=== PATIENT | male | born 1940 | race Caucasian/White ===

== ENCOUNTER 2017-07-21 02:05 | Inpatient (IN) | payer MEDICARE ==
[~2017-07-21] VITALS: Ht 177.8 cm; Wt 110.2 kg
[2017-07-21] VITALS (9 sets, daily range): BP systolic 140–164; BP diastolic 70–89; PULSE 58–93; RESP 16–18; TEMP 97.4–98.7; O2SAT 93–100
[~2017-07-21 02:05] MED LIST: EC-N375T3; LOTR5CAP2; NOVOLOGMXP; PROP65; TOPR50TA; VYTO10TA35
[2017-07-21] MEDS ORDERED: TOPR50TA PO (02:29)
[2017-07-21] MEDS ORDERED: NOVORP2 SQ (02:29)
[2017-07-21] MEDS ORDERED: GABA300C5 PO (02:29)
[2017-07-21] MEDS ORDERED: DIOV80TA4 PO (02:29)
[2017-07-21] MEDS ORDERED: TRAM50TA PO (02:29)
[2017-07-21] MEDS ORDERED: VITA1000 PO (02:29)
[2017-07-21] MEDS ORDERED: GLIM4TAB PO (02:29)
[2017-07-21] MEDS ORDERED: METF500T PO (02:29)
[2017-07-21] MEDS ORDERED: LIPI20TA PO (02:29)
[2017-07-21] MEDS ORDERED: FISH1200 PO (02:29)
[2017-07-21] MEDS ORDERED: ASPI81CH6 CHEW (02:29)
[2017-07-21] MEDS ORDERED: GLIM2TAB PO (02:29)
[2017-07-21] MEDS ORDERED: VITA250T3 PO (02:29)
[2017-07-21] MEDS ORDERED: AMLO5 PO (02:29)
[2017-07-21] MEDS ORDERED: SODIUM CHLOR 0.9% 1000 ML INJ 1,000 ML IV SCH (03:17)
--- NOTE | 2017-07-21 03:17 | PD ---
HPI Chief Complaint: GI Complaint Time Seen by Provider: 03:14 Travel History International Travel<30 days: No Contact w/Intl Traveler<30days: No Traveled to known affect area: No History of Present Illness HPI The patient is a 77-year-old male who complains of midline epigastric pain and nausea since midnight tonight. The patient still has his gallbladder and appendix. He is a insulin-dependent diabetic. At approximately 0300 he vomited and felt much better his pain went from a 10/10 to a 6/10. The pain is sharp pain. He denies vomiting any blood or any fever. PFSH Past Medical History Cancer: Yes (bladder) Cardiac Catheterization: Yes High Cholesterol: Yes Chest Pain: Yes Diabetes: Yes Patient Takes Glucophage: Yes Diminished Hearing: Yes Genetic Disorder: No Tetanus Vaccination: > 5 Years Influenza Vaccination: No Past Surgical History Coronary Stent: Yes (3 STENT RIGHT CA) Eye Surgery: Yes (cataracts) Social History Alcohol Use: No Tobacco Use: No Substance Use: No Allergies-Medications (Allergen,Severity, Reaction): Coded Allergies: No Known Allergies (Verified Allergy, Unknown, 07/21/17) Reported Meds & Prescriptions Reported Meds & Active Scripts Active Reported Fish Oil 1200 mg ([place]-3 Fatty Acids) 360 Mg-1,200 Mg Cap 1 Cap PO DAILY Vitamin D-1000 (Cholecalciferol) 1,000 Unit Tab 2,000 Units PO DAILY Vitamin C (Ascorbic Acid) 250 Mg Tab 1,200 Mg PO DAILY Gabapentin 300 Mg Cap 300 Mg PO HS Aspirin Low Dose (Aspirin) 81 Mg Chew 81 Mg CHEW DAILY Tramadol (Tramadol HCl) 50 Mg Tab 50 Mg PO Q8H PRN Novolin R Inj (Insulin Human Regular) 1,000 Unit/10 Ml Vial 10 Units SQ PRN Norvasc (Amlodipine Besylate) 5 Mg Tab 5 Mg PO DAILY Lipitor (Atorvastatin Calcium) 20 Mg Tab 20 Mg PO HS Metformin (Metformin HCl) 500 Mg Tab 500 Mg PO DAILY With a meal Toprol XL (Metoprolol Succinate) 50 Mg Tab 50 Mg PO DAILY Glimepiride 4 Mg Tab 4 Mg PO AT 1PM Take with breakfast or first main meal Glimepiride 2 Mg Tab 2 Mg PO DAILYAC Take with breakfast or first main meal Diovan (Valsartan) 80 Mg Tab 80 Mg PO DAILY Review of Systems Except as stated in HPI: all other systems reviewed are Neg Physical Exam Narrative GENERAL: The patient is alert, oriented 3 in moderate apparent distress with his abdominal pain. His vital signs are normal. SKIN: Focused skin assessment warm/dry. HEAD: Atraumatic. Normocephalic. EYES: Pupils equal and round. No scleral icterus. No injection or drainage. ENT: No nasal bleeding or discharge. Mucous membranes pink and moist. NECK: Trachea midline. No JVD. CARDIOVASCULAR: Regular rate and rhythm. No murmur appreciated. RESPIRATORY: No accessory muscle use. Clear to auscultation. Breath sounds equal bilaterally. GASTROINTESTINAL: Abdomen soft, with tenderness to direct palpation in the midline epigastrium, nondistended. Hepatic and splenic margins not palpable. No guarding or rebound is present. He does have a right upper quadrant tenderness as well but Mcintyre sign is negative. MUSCULOSKELETAL: No obvious deformities. No clubbing. No cyanosis. No edema. NEUROLOGICAL: Awake and alert. No obvious cranial nerve deficits. Motor grossly within normal limits. Normal speech. PSYCHIATRIC: Appropriate mood and affect; insight and judgment normal. Data Data Last Documented VS Vital Signs Date Time Temp Pulse Resp B/P (MAP) Pulse Ox O2 Delivery O2 Flow Rate FiO2 07/21/17 05:14 18 07/21/17 03:44 Room Air 07/21/17 03:44 68 140/70 (93) 100 07/21/17 02:10 97.4 Orders Orders Complete Blood Count With Diff (07/21/17 03:17) Comprehensive Metabolic Panel (07/21/17 03:17) Lipase (07/21/17 03:17) Urinalysis - C+S If Indicated (07/21/17 03:17) Iv Access Insert/Monitor (07/21/17 03:17) Ecg Monitoring (07/21/17 03:17) Oximetry (07/21/17 03:17) Morphine Inj (Morphine Inj) (07/21/17 03:30) Ondansetron Inj (Zofran Inj) (07/21/17 03:30) Pantoprazole Inj (Protonix Inj) (07/21/17 03:30) Sodium Chlor 0.9% 1000 Ml Inj (Ns 1000 M (07/21/17 03:17) Sodium Chloride 0.9% Flush (Ns Flush) (07/21/17 03:30) Famotidine Inj (Pepcid Inj) (07/21/17 03:30) Ct Abd/Pel W/O Iv Contrast (07/21/17 03:57) Ondansetron Inj (Zofran Inj) (07/21/17 04:45) Morphine Inj (Morphine Inj) (07/21/17 04:45) Admit To Inpatient (07/21/17 ) Vital Signs (Adult) Q4H (07/21/17 05:11) Activity Oob With Assistance (07/21/17 05:11) Urban Planning Teacher / Telemetry .CONTINUOUS (07/21/17 05:11) Diet Npo (07/21/17 Breakfast) Sodium Chlor 0.9% 1000 Ml Inj (Ns 1000 M (07/21/17 05:11) Sodium Chloride 0.9% Flush (Ns Flush) (07/21/17 05:15) Sodium Chloride 0.9% Flush (Ns Flush) (07/21/17 09:00) Ondansetron Inj (Zofran Inj) (07/21/17 05:15) Comprehensive Metabolic Panel (07/22/17 06:00) Pt Request For Service (07/21/17 05:11) Case Management Consult (07/21/17 05:11) Naloxone Inj (Narcan Inj) (07/21/17 05:15) Inpatient Certification (07/21/17 ) Complete Blood Count With Diff (07/22/17 06:00) Lipase (07/22/17 06:00) Admit Order (Ed Use Only) (07/21/17 05:08) Labs Laboratory Tests Test 07/21/17 03:11 White Blood Count 12.1 TH/MM3 Red Blood Count 4.07 MIL/MM3 Hemoglobin 13.2 GM/DL Hematocrit 39.5 % Mean Corpuscular Volume 97.1 FL Mean Corpuscular Hemoglobin 32.5 PG Mean Corpuscular Hemoglobin Concent 33.4 % Red Cell Distribution Width 13.2 % Platelet Count 229 TH/MM3 Mean Platelet Volume 7.8 FL Neutrophils (%) (Auto) 77.5 % Lymphocytes (%) (Auto) 13.8 % Monocytes (%) (Auto) 7.6 % Eosinophils (%) (Auto) 0.5 % Basophils (%) (Auto) 0.6 % Neutrophils # (Auto) 9.3 TH/MM3 Lymphocytes # (Auto) 1.7 TH/MM3 Monocytes # (Auto) 0.9 TH/MM3 Eosinophils # (Auto) 0.1 TH/MM3 Basophils # (Auto) 0.1 TH/MM3 CBC Comment DIFF FINAL Differential Comment Urine Collection Type CLEAN CATCH Urine Color YELLOW Urine Turbidity CLEAR Urine pH 5.0 Urine Specific [place] 1.010 Urine Protein NEG mg/dL Urine Glucose (UA) 500 mg/dL Urine Ketones 15 mg/dL Urine Occult Blood TRACE Urine Nitrite NEG Urine Bilirubin NEG Urine Urobilinogen 0.2 MG/DL Urine Leukocyte Esterase NEG Urine RBC 0-3 /hpf Urine Squamous Epithelial Cells 0-5 /hpf Urine Mucus RARE /lpf Microscopic Urinalysis Comment CULT NOT INDICATED Blood Urea Nitrogen 25 MG/DL Creatinine 1.50 MG/DL Random Glucose 309 MG/DL Total Protein 8.0 GM/DL Albumin 3.9 GM/DL Calcium Level 9.1 MG/DL Alkaline Phosphatase 64 U/L Aspartate Amino Transf (AST/SGOT) 281 U/L Alanine Aminotransferase (ALT/SGPT) 158 U/L Total Bilirubin 1.0 MG/DL Sodium Level 135 MEQ/L Potassium Level 4.2 MEQ/L Chloride Level 98 MEQ/L Carbon Dioxide Level 27.5 MEQ/L Anion Gap 10 MEQ/L Estimat Glomerular Filtration Rate 45 ML/MIN Lipase GREATER THAN 13374 U/L MDM Medical Decision Making Medical Screen Exam Complete: Yes Emergency Medical Condition: Yes Medical Record Reviewed: Yes Interpretation(s) There are 2 stones in the common duct that apparently are calcified. This may represent the cause of gallstone pancreatitis. The CBC is elevated at 12,100 with 78% neutrophils. The complete metabolic profile shows a BUN of 25, creatinine 1.5, GFR 45 with glucose 309 and SGOT of 281 the GPT is 158 and sodium 135. The lipase is greater than 30,000. The urine shows 500 glucose with 15 ketones but is otherwise unremarkable. Differential Diagnosis Choledocholithiasis, gallstone pancreatitis, other pancreatitis, dehydration, electrolyte disorder, colitis, urinary tract infection Narrative Course The patient appears to have common duct stones. This likely caused gallstone pancreatitis. The patient will be admitted to Dr. Dukes to [facility]. It is likely an ERCP will be necessary and this is done only at [facility]. Gastroenterology will be consulting. Physician Communication Physician Communication The patient is admitted to Dr. Dukes. Diagnosis Primary Impression: Pancreatitis Additional Impression: Common bile duct calculi Admitting Information Admitting Physician Requests: Admit Vladimir Diaz MD Jul 21, 2017 03:17
[2017-07-21] MEDS ORDERED: MORPHINE SULFATE 4 MG/ML INJ IV PUSH ONE ×4 (03:30→12:45)
[2017-07-21] MEDS ORDERED: PANTOPRAZOLE SODIUM 40 MG VIAL IVP ONE (03:30)
[2017-07-21] MEDS ORDERED: SODIUM CHLORIDE 0.9% FLUSH 10 ML FLUSH IV FLUSH PRN ×2 (03:30→05:15)
[2017-07-21] MEDS ORDERED: FAMOTIDINE 20 MG/2 ML VIAL IV PUSH ONE (03:30)
[2017-07-21] MEDS ORDERED: ONDANSETRON HCL 4 MG/2 ML VIAL IVP ONE (03:30)
[2017-07-21 03:38] LABS: BILIRUBIN, URINE NEG (NEG); BLOOD, URINE TRACE (NEG); GLUCOSE,URINE 500 mg/dL (NEG); KETONE, URINE 15 mg/dL (NEG); NITRITE,URINE NEG (NEG); URINE COLOR YELLOW (YELLW/STRAW); URINE LEUKOCYTE ESTERASE NEG (NEG)
[2017-07-21 03:39] LABS: AUTOMATED NEUTROPHIL # 9.3 TH/MM3 (1.8-7.7); BASOPHIL # 0.1 TH/MM3 (0-0.2); BASOPHIL % 0.6 % (0.0-2.0); EOSINOPHIL # 0.1 TH/MM3 (0-0.4); EOSINOPHIL % 0.5 % (0.0-4.0); HEMATOCRIT 39.5 % (39.0-51.0); HEMOGLOBIN 13.2 GM/DL (13.0-17.0); LYMPH % 13.8 % (9.0-44.0); LYMPHOCYTE # 1.7 TH/MM3 (1.0-4.8); MEAN CELL VOLUME 97.1 FL (80.0-100.0); MEAN CORPUSCULAR HEMOGLOBIN 32.5 PG (27.0-34.0); MEAN CORPUSCULAR HGB CONC 33.4 % (32.0-36.0); MEAN PLATELET VOLUME 7.8 FL (7.0-11.0); MONO % 7.6 % (0.0-8.0); MONOCYTE # 0.9 TH/MM3 (0-0.9); NEUT % 77.5 % (16.0-70.0); PLATELET COUNT 229 TH/MM3 (150-450); RED BLOOD COUNT 4.07 MIL/MM3 (4.50-5.90); RED CELL DISTRIBUTION WIDTH 13.2 % (11.6-17.2); WHITE BLOOD COUNT 12.1 TH/MM3 (4.0-11.0)
[2017-07-21 03:46] LABS: CHLORIDE 98 MEQ/L (98-107); SODIUM (NA) 135 MEQ/L (136-145)
[2017-07-21 03:49] LABS: CALCIUM 9.1 MG/DL (8.5-10.1)
[2017-07-21 03:50] LABS: ALBUMIN 3.9 GM/DL (3.4-5.0); BICARBONATE 27.5 MEQ/L (21.0-32.0); BLOOD UREA NITROGEN 25 MG/DL (7-18); GLUCOSE,RANDOM 309 MG/DL (74-106); RBC, URINE 0-3 /hpf (0-3); SQUAMOUS EPITHELIAL CELL URINE 0-5 /hpf (0-5)
[2017-07-21 03:51] LABS: MUCUS URINE RARE /lpf (OCC)
[2017-07-21 03:52] LABS: ALT (GPT) 158 U/L (12-78); AST (GOT) 281 U/L (15-37); GLOMERULAR FILTRATION RATE 45 ML/MIN (>89)
[2017-07-21 03:55] LABS: ALKALINE PHOSPHATASE 64 U/L (45-117)
[2017-07-21] MEDS ORDERED: ONDANSETRON HCL 4 MG/2 ML VIAL IV ONE (04:45)
--- NOTE | 2017-07-21 04:48 | RADRPT ---
EXAM DATE/TIME: 07/21/2017 04:00 This report includes an Addendum and supersedes previous reports for this exam. [facility] COMPARISON: No previous studies available for comparison. INDICATIONS : Abdominal pain, nuasea and dizziness. Evaluate for renal stones. ORAL CONTRAST: No oral contrast ingested. RADIATION DOSE: 27.17 CTDIvol (mGy) MEDICAL HISTORY : Carcinoma, bladder. knee, bilateral hips SURGICAL HISTORY : Coronary artery stent. ENCOUNTER: Initial ACUITY: 3 days PAIN SCALE: 7/10 LOCATION: abdomen TECHNIQUE: Volumetric scanning of the abdomen and pelvis was performed. Using automated exposure control and ad justment of the mA and/or kV according to patient size, radiation dose was kept as low as reasonably achievable to obtain optimal diagnostic quality images. DICOM format image data is available electro nically for review and comparison. FINDINGS: LOWER LUNGS: The visualized lower lungs are clear. LIVER: Homogeneous density without lesion. There is no dilation of the biliary tree. No calcified gallston es. SPLEEN: Normal size without lesion. PANCREAS: Within normal limits. KIDNEYS: Normal in size and shape. There is no mass, stone, or hydronephrosis. A 2.4 cm exophytic cortical cy st seen involving the left kidney. Hounsfield units are 12. ADRENAL GLANDS: Within normal limits. VASCULAR: Diffuse calcified atherosclerotic plaque. No aneurysmal change. BOWEL/MESENTERY: The stomach, small bowel, and colon demonstrate no acute abnormality. There is no free intraperitone al air or fluid. Scattered colonic diverticuli. No acute inflammation. ABDOMINAL WALL: Within normal limits. RETROPERITONEUM: There is no lymphadenopathy. BLADDER: No wall thickening or mass. REPRODUCTIVE: Within normal limits. INGUINAL: There is no lymphadenopathy or hernia. MUSCULOSKELETAL: Bilateral hip arthroplasties obscures the lower pelvis. Degenerative changes of the lumbar spine incl uding grade 1 anterolisthesis of L4 on L5.. CONCLUSION: 1. No acute abnormality. In particular, no renal or ureteral stones. 2. Colonic diverticulosis without acute inflammation. Jaylen Raphael Jr., MD on July 21, 2017 at 4:41 Board Certified Radiologist. This report was verified electronically. ADDENDUM: Upon further review there are 2 small calcifications associated with the pancreatic head measuring 2 mm respectively. These are felt to relate to common bile duct stones. No dilatation of the pancreatic duct or common bile duct observed. There is subtle stranding of the pancreatic head suggesting acute pancreatitis. A HIDA scan could be performed to evaluate the common bile duct patency. I have spoken with Dr. Diaz. Jaylen Raphael Jr., MD on July 21, 2017 at 5:02 Board Certified Radiologist. This report was verified electronically.
[2017-07-21] MEDS ORDERED: NALOXONE HCL 0.4 MG/ML AMP IV PUSH PRN (05:15)
[2017-07-21] MEDS: SODIUM CHLOR 0.9% 1000 ML INJ 1,000 ML IV SCH ×3 (06:08→17:34)
[2017-07-21] MEDS: SODIUM CHLORIDE 0.9% FLUSH 10 ML FLUSH IV FLUSH SCH ×2 (08:57→22:55)
--- NOTE | 2017-07-21 11:35 | RADRPT ---
EXAM DATE/TIME: 07/21/2017 09:35 This report includes an Addendum and supersedes previous reports for this exam. [facility] COMPARISON: CT ABDOMEN & PELVIS W/O CONTRAST, July 21, 2017, 4:00. INDICATIONS : Abdominal pain with vomiting. DOSE: 4.2 mCi Tc99m Mebrofenin IV MEDICAL HISTORY : Diabetes mellitus type 2. Hypercholesterolemia. Carcinoma, bladder. Pancreatitis. SURGICAL HISTORY : Coronary artery stent. ENCOUNTER: Initial ACUITY: 1 day PAIN SCALE: 6/10 LOCATION: Right upper quadrant TECHNIQUE: Following the intravenous administration of radiotracer, dynamic sequential images were performed wit h continuous acquisition. FINDINGS: The exam demonstrates prompt uptake of tracer with no excretion. Differential considerations would in clude complete obstruction of the common bile duct versus acute hepatitis. The gallbladder is not identified. Delayed imaging for further assessment would be warranted. CONCLUSION: 1. Nonvisualization of the gallbladder. 2. There is uptake of tracer within the liver but no excretion. Differential considerations are given above. 3. Delayed imaging for more definitive assessment is warranted. Griffin Pham MD on July 21, 2017 at 11:31 Board Certified Radiologist. This report was verified electronically. ADDENDUM: 4 hour delayed images were obtained. Again, there is no evidence for activity in the gallbladder, siobhan e duct or bowel. Differential considerations again include complete CBD obstruction versus acute hepa titis. Patel Ann MD on July 21, 2017 at 15:24 Board Certified Radiologist. This report was verified electronically.
[2017-07-21] MEDS ORDERED: MORPHINE SULFATE 4 MG/ML INJ IV PUSH PRN (12:30)
[2017-07-21] MEDS ORDERED: MORPHINE SULFATE 2 MG/ML INJ SQ PRN ×2 (12:30→16:15)
[2017-07-21] MEDS: ONDANSETRON HCL 4 MG/2 ML VIAL IVP PRN (12:43)
--- NOTE | 2017-07-21 15:25 | RADRPT ---
EXAM DATE/TIME: 07/21/2017 13:53 [facility] COMPARISON: None. INDICATIONS : Abdominal pain. MEDICAL HISTORY : Carcinoma, bladder. Diabetes mellitus type 2. Hypertension. SURGICAL HISTORY : Total knee replacement, right. Bilat hip replacements. Bladder surgery. ENCOUNTER: Initial ACUITY: 2 day PAIN SCORE: 5/10 LOCATION: abdomen TECHNIQUE: Multiplanar, multisequence magnetic resonance imaging of the abdomen was performed. High-resolution 3D dataset was utilized to reconstruct maximum-intensity projection (MIP) images. FINDINGS: The gallbladder wall appears thickened with some pericholecystic fluid. The common bile duct measures about 6 mm in diameter which is within normal range. Pancreatic duct me asures up to about 5 mm in diameter, mildly dilated. No definite evidence for choledocholithiasis on MRCP. Visipaque portal edema in the liver is nonspecific and can be related to hepatitis. There is a small amount fluid around the pancreatic head. Multiple bilateral renal cysts. CONCLUSION: Gall bladder wall thickening with some pericholecystic fluid. Differential diagnosis includes acute c holecystitis. No definite evidence for choledocholithiasis. The pancreatic duct is mildly prominent. Fluid mostly around pancreatic head could be characteristic of reported history of pancreatitis. Periportal edema in the liver which can be associated with hepatitis as well. Multiple bilateral renal cysts. Soto Munguia MD on July 21, 2017 at 15:13 Board Certified Radiologist. This report was verified electronically.
--- NOTE | 2017-07-21 16:28 | HHI.HP ---
[facility]Staff Admission Diagnosis Gallstone pancreatitis Diagnoses: (1) Pancreatitis Diagnosis: Principal (2) Cholecystitis Diagnosis: Principal (3) Biliary obstruction Travel History International Travel<30 Days: No Contact w/Intl Traveler <30 Da: No Traveled to Known Affected Are: No History of Present Illness Mr. Philip is a 77-year-old male. He came in secondary to abdominal pain. He says he abdominal pain was severe and associated with nausea. The pain started yesterday after having barbecue and chips for dinner. He has no prior history of known cholelithiasis. He still has his natural gallbladder and appendix. Baseline medical conditions are diabetes and coronary artery disease. Workup in the emergency department shows pancreatitis. Further workup shows evidence of biliary obstruction and possible cholecystitis. His pancreatitis may be secondary to a pancreatic obstruction. No fevers or vomiting. Leukocytosis is present but no signs of sepsis. Review of Systems Constitutional: DENIES: Fatigue, Fever, Chills Endocrine: DENIES: Heat/cold intolerance, Polydipsia, Polyuria Eyes: DENIES: Blurred vision, Diplopia, Eye inflammation, Eye pain Respiratory: DENIES: Cough, Wheezing, Shortness of breath Cardiovascular: DENIES: Chest pain, Palpitations, Syncope Gastrointestinal: COMPLAINS OF: Abdominal pain, DENIES: Black stools, Bloody stools Musculoskeletal: DENIES: Joint pain, Muscle aches, Stiffness Integumentary: DENIES: Abnormal pigmentation, Nail changes, Pruritus, Rash Hematologic/lymphatic: DENIES: Bruising, Lymphadenopathy Immunologic/allergic: DENIES: Eczema, Urticaria Neurologic: DENIES: Abnormal gait, Headache, Paresthesias Psychiatric: DENIES: Anxiety, Confusion, Hallucinations Past Family Social History Past Medical History History of bladder cancer Coronary artery disease Hyperlipidemia History of angina Diabetes mellitus type 2 Presbycusis Past Surgical History 3 stents and right coronary artery History of cataract surgery Allergies: Coded Allergies: No Known Allergies (Verified Allergy, Unknown, 07/21/17) Active Ordered Medications Administered Medications Medications (Trade) Dose Ordered Sig/Mo Route PRN Reason Start Time Stop Time Status Last Admin Dose Admin Sodium Chloride 1,000 ml @ 100 mls/hr Q10H IV 07/21/17 05:11 07/21/17 06:08 Ondansetron HCl (Zofran Inj) 4 mg Q6H PRN IVP NAUSEA OR VOMITING 07/21/17 05:15 07/21/17 12:43 Family History Coronary artery disease in mother and father Social History Patient does not smoke, does not drink alcohol, does not use illicit substances. Physical Exam Vital Signs Vital Signs Date Time Temp Pulse Resp B/P (MAP) Pulse Ox O2 Delivery O2 Flow Rate FiO2 07/21/17 15:00 79 16 152/89 (110) 95 Room Air 07/21/17 12:19 77 18 159/87 (111) 96 Room Air 07/21/17 07:52 73 16 144/78 (100) 98 Room Air 07/21/17 06:13 15 07/21/17 06:10 73 18 141/80 (100) 98 07/21/17 05:19 97.8 72 18 149/74 (99) 97 Room Air 07/21/17 05:14 18 07/21/17 03:44 Room Air 07/21/17 03:44 68 16 140/70 (93) 100 Room Air 07/21/17 03:43 20 07/21/17 02:10 97.4 70 16 143/75 (97) 98 Physical Exam GENERAL: NAD, A&Ox3 HEAD: Normocephalic. NECK: Supple, trachea midline. No lymphadenopathy. EYES: No scleral icterus. No injection or drainage. CARDIOVASCULAR: Regular rate and rhythm without murmurs, gallops, or rubs. RESPIRATORY: Breath sounds equal bilaterally. No accessory muscle use. GASTROINTESTINAL: Abdomen soft, nondistended. Abdominal and epigastric tenderness. MUSCULOSKELETAL: No cyanosis, or edema. SKIN: Warm and dry. NEURO: No focal neurological deficitis. Laboratory Laboratory Tests Test 07/21/17 03:11 White Blood Count 12.1 Red Blood Count 4.07 Hemoglobin 13.2 Hematocrit 39.5 Mean Corpuscular Volume 97.1 Mean Corpuscular Hemoglobin 32.5 Mean Corpuscular Hemoglobin Concent 33.4 Red Cell Distribution Width 13.2 Platelet Count 229 Mean Platelet Volume 7.8 Neutrophils (%) (Auto) 77.5 Lymphocytes (%) (Auto) 13.8 Monocytes (%) (Auto) 7.6 Eosinophils (%) (Auto) 0.5 Basophils (%) (Auto) 0.6 Neutrophils # (Auto) 9.3 Lymphocytes # (Auto) 1.7 Monocytes # (Auto) 0.9 Eosinophils # (Auto) 0.1 Basophils # (Auto) 0.1 CBC Comment DIFF FINAL Differential Comment Urine Collection Type CLEAN CATCH Urine Color YELLOW Urine Turbidity CLEAR Urine pH 5.0 Urine Specific [place] 1.010 Urine Protein NEG Urine Glucose (UA) 500 Urine Ketones 15 Urine Occult Blood TRACE Urine Nitrite NEG Urine Bilirubin NEG Urine Urobilinogen 0.2 Urine Leukocyte Esterase NEG Urine RBC 0-3 Urine Squamous Epithelial Cells 0-5 Urine Mucus RARE Microscopic Urinalysis Comment CULT NOT INDICATED Blood Urea Nitrogen 25 Creatinine 1.50 Random Glucose 309 Total Protein 8.0 Albumin 3.9 Calcium Level 9.1 Alkaline Phosphatase 64 Aspartate Amino Transf (AST/SGOT) 281 Alanine Aminotransferase (ALT/SGPT) 158 Total Bilirubin 1.0 Sodium Level 135 Potassium Level 4.2 Chloride Level 98 Carbon Dioxide Level 27.5 Anion Gap 10 Estimat Glomerular Filtration Rate 45 Lipase GREATER THAN 80442 Result Diagram: 07/21/17 0311 07/21/17 0311 Imaging Last Impressions Abdomen/Pelvis CT 07/21/17 0357 Signed Impressions: Service Date/Time: Friday, July 21, 2017 04:00 - CONCLUSION: 1. No acute abnormality. In particular, no renal or ureteral stones. 2. Colonic diverticulosis without acute inflammation. aJylen Raphael Jr., MD ADDENDUM: Upon further review there are 2 small calcifications associated with the pancreatic head measuring 2 mm respectively. These are felt to relate to common bile duct stones. No dilatation of the pancreatic duct or common bile duct observed. There is subtle stranding of the pancreatic head suggesting acute pancreatitis. A HIDA scan could be performed to evaluate the common bile duct patency. I have spoken with Dr. Diaz. Jaylen Raphael Jr., MD Hepatobiliary Scan Nuclear Medicine 07/21/17 0000 Signed Impressions: Service Date/Time: Friday, July 21, 2017 09:35 - CONCLUSION: 1. Nonvisualization of the gallbladder. 2. There is uptake of tracer within the liver but no excretion. Differential considerations are given above. 3. Delayed imaging for more definitive assessment is warranted. Griffin Pham MD ADDENDUM: 4 hour delayed images were obtained. Again, there is no evidence for activity in the gallbladder, bile duct or bowel. Differential considerations again include complete CBD obstruction versus acute hepatitis. Patel Ann MD Cholangiopancreatography MRI 07/21/17 0000 Signed Impressions: Service Date/Time: Friday, July 21, 2017 13:53 - CONCLUSION: Gall bladder wall thickening with some pericholecystic fluid. Differential diagnosis includes acute cholecystitis. No definite evidence for choledocholithiasis. The pancreatic duct is mildly prominent. Fluid mostly around pancreatic head could be characteristic of reported history of pancreatitis. Periportal edema in the liver which can be associated with hepatitis as well. Multiple bilateral renal cysts. MD [facility] VTE Risk Assessment Caprini VTE Risk Assessment: No/Low Risk (score <= 1) Caprini Risk Assessment Model Point Value = 1 Point Value = 2 Point Value = 3 Point Value = 5 Age 41-60 Minor surgery BMI > 25 kg/m2 Swollen legs Varicose veins or History of unexplained or recurrent spontaneous Oral contraceptives or hormone replacement Sepsis (< 1 month) Serious lung disease, including pneumonia (< 1 month) Abnormal pulmonary function Acute myocardial infarction Congestive heart failure (< 1 month) History of inflammatory bowel disease Medical patient at bed rest Age 61-74 Arthroscopic surgery Major open surgery (> 45 min) Laparoscopic surgery (> 45 min) Malignancy Confined to bed (> 72 hours) Immobilizing plaster cast Central venous access Age >= 75 History of VTE Family history of VTE Factor V Leiden Prothrombin [id number] Lupus anticoagulant Anticardiolipin antibodies Elevated serum homocysteine Heparin-induced thrombocytopenia Other congenital or acquired thrombophilia Stroke (< 1 month) Elective arthroplasty Hip, pelvis, or leg fracture Acute spinal cord injury (< 1 month) Prophylaxis Regimen Total Risk Factor Score Risk Level Prophylaxis Regimen 0-1 Low Early ambulation 2 Moderate Order ONE of the following: *Sequential Compression Device (SCD) *Heparin 5000 units SQ BID 3-4 Higher Order ONE of the following medications: *Heparin 5000 units SQ TID *Enoxaparin/Lovenox 40 mg SQ daily (WT < 150 kg, CrCl > 30 mL/min) *Enoxaparin/Lovenox 30 mg SQ daily (WT < 150 kg, CrCl > 10-29 mL/min) *Enoxaparin/Lovenox 30 mg SQ BID (WT < 150 kg, CrCl > 30 mL/min) AND/OR *Sequential Compression Device (SCD) 5 or more Highest Order ONE of the following medications: *Heparin 5000 units SQ TID (Preferred with Epidurals) *Enoxaparin/Lovenox 40 mg SQ daily (WT < 150 kg, CrCl > 30 mL/min) *Enoxaparin/Lovenox 30 mg SQ daily (WT < 150 kg, CrCl > 10-29 mL/min) *Enoxaparin/Lovenox 30 mg SQ BID (WT < 150 kg, CrCl > 30 mL/min) AND *Sequential Compression Device (SCD) Assessment and Plan Problem List: (1) Cholecystitis ICD Code: K81.9 - Cholecystitis, unspecified (2) Pancreatitis ICD Code: K85.90 - Acute pancreatitis without necrosis or infection, unspecified (3) Biliary obstruction ICD Code: K83.1 - Obstruction of bile duct Assessment and Plan 77-year-old male admitted secondary to pancreatitis which appears to be related to biliary obstruction Pancreatitis Biliary obstruction Possible cholecystitis Continue as needed pain treatments Nothing by mouth IV hydration Gastroenterology consulted Surgery consulted Hyperlipidemia Continue present treatment Follow as an outpatient Coronary artery disease History of angina Currently asymptomatic Follow clinically Holding aspirin History of bladder cancer Presbycusis Unrelated to present status Follows in outpatient Diabetes mellitus type 2 Follow blood sugars Insulin sliding scale Diabetic diet DVT prophylaxis SCDs Physician Certification 2 Midnight Certification Type: Admission for Inpatient Services Order for Inpatient Services The services are ordered in accordance with Medicare regulations or non- Medicare payer requirements, as applicable. In the case of services not specified as inpatient-only, they are appropriately provided as inpatient services in accordance with the 2-midnight benchmark. Estimated LOS (days): 3 days is the estimated time the patient will need to remain in the hospital, assuming treatment plan goals are met and no additional complications. Post-Hospital Plan: Home Griffin Morales MD Jul 21, 2017 16:28
[2017-07-21] MEDS ORDERED: GLUCAGON 1 MG/ML VIAL OTHER PRN (16:30)
[2017-07-21] MEDS ORDERED: DEXTROSE 50% IN WATER 50 ML VIAL(D50) IV PUSH PRN (16:30)
[2017-07-21] MEDS: INSULIN ASPART SUPPLEMENTAL SCALE SQ SCH ×2 (17:00→21:00)
[2017-07-21] MEDS ORDERED: MORPHINE SULFATE 2 MG/ML INJ IV PUSH ONE (17:15)
--- NOTE | 2017-07-21 17:16 | PD ---
Data Data Last Documented VS Vital Signs Date Time Temp Pulse Resp B/P (MAP) Pulse Ox O2 Delivery O2 Flow Rate FiO2 07/21/17 05:14 18 07/21/17 03:44 Room Air 07/21/17 03:44 68 140/70 (93) 100 07/21/17 02:10 97.4 Orders Orders Complete Blood Count With Diff (07/21/17 03:17) Comprehensive Metabolic Panel (07/21/17 03:17) Lipase (07/21/17 03:17) Urinalysis - C+S If Indicated (07/21/17 03:17) Iv Access Insert/Monitor (07/21/17 03:17) Ecg Monitoring (07/21/17 03:17) Oximetry (07/21/17 03:17) Morphine Inj (Morphine Inj) (07/21/17 03:30) Ondansetron Inj (Zofran Inj) (07/21/17 03:30) Pantoprazole Inj (Protonix Inj) (07/21/17 03:30) Sodium Chlor 0.9% 1000 Ml Inj (Ns 1000 M (07/21/17 03:17) Sodium Chloride 0.9% Flush (Ns Flush) (07/21/17 03:30) Famotidine Inj (Pepcid Inj) (07/21/17 03:30) Ct Abd/Pel W/O Iv Contrast (07/21/17 03:57) Ondansetron Inj (Zofran Inj) (07/21/17 04:45) Morphine Inj (Morphine Inj) (07/21/17 04:45) Admit To Inpatient (07/21/17 ) Vital Signs (Adult) Q4H (07/21/17 05:11) Activity Oob With Assistance (07/21/17 05:11) Drink Box Mechanic / Telemetry .CONTINUOUS (07/21/17 05:11) Diet Npo (07/21/17 Breakfast) Sodium Chlor 0.9% 1000 Ml Inj (Ns 1000 M (07/21/17 05:11) Sodium Chloride 0.9% Flush (Ns Flush) (07/21/17 05:15) Sodium Chloride 0.9% Flush (Ns Flush) (07/21/17 09:00) Ondansetron Inj (Zofran Inj) (07/21/17 05:15) Comprehensive Metabolic Panel (07/22/17 06:00) Pt Request For Service (07/21/17 05:11) Case Management Consult (07/21/17 05:11) Naloxone Inj (Narcan Inj) (07/21/17 05:15) Inpatient Certification (07/21/17 ) Complete Blood Count With Diff (07/22/17 06:00) Lipase (07/22/17 06:00) Admit Order (Ed Use Only) (07/21/17 05:08) Labs Laboratory Tests Test 07/21/17 03:11 White Blood Count 12.1 TH/MM3 Red Blood Count 4.07 MIL/MM3 Hemoglobin 13.2 GM/DL Hematocrit 39.5 % Mean Corpuscular Volume 97.1 FL Mean Corpuscular Hemoglobin 32.5 PG Mean Corpuscular Hemoglobin Concent 33.4 % Red Cell Distribution Width 13.2 % Platelet Count 229 TH/MM3 Mean Platelet Volume 7.8 FL Neutrophils (%) (Auto) 77.5 % Lymphocytes (%) (Auto) 13.8 % Monocytes (%) (Auto) 7.6 % Eosinophils (%) (Auto) 0.5 % Basophils (%) (Auto) 0.6 % Neutrophils # (Auto) 9.3 TH/MM3 Lymphocytes # (Auto) 1.7 TH/MM3 Monocytes # (Auto) 0.9 TH/MM3 Eosinophils # (Auto) 0.1 TH/MM3 Basophils # (Auto) 0.1 TH/MM3 CBC Comment DIFF FINAL Differential Comment Urine Collection Type CLEAN CATCH Urine Color YELLOW Urine Turbidity CLEAR Urine pH 5.0 Urine Specific [place] 1.010 Urine Protein NEG mg/dL Urine Glucose (UA) 500 mg/dL Urine Ketones 15 mg/dL Urine Occult Blood TRACE Urine Nitrite NEG Urine Bilirubin NEG Urine Urobilinogen 0.2 MG/DL Urine Leukocyte Esterase NEG Urine RBC 0-3 /hpf Urine Squamous Epithelial Cells 0-5 /hpf Urine Mucus RARE /lpf Microscopic Urinalysis Comment CULT NOT INDICATED Blood Urea Nitrogen 25 MG/DL Creatinine 1.50 MG/DL Random Glucose 309 MG/DL Total Protein 8.0 GM/DL Albumin 3.9 GM/DL Calcium Level 9.1 MG/DL Alkaline Phosphatase 64 U/L Aspartate Amino Transf (AST/SGOT) 281 U/L Alanine Aminotransferase (ALT/SGPT) 158 U/L Total Bilirubin 1.0 MG/DL Sodium Level 135 MEQ/L Potassium Level 4.2 MEQ/L Chloride Level 98 MEQ/L Carbon Dioxide Level 27.5 MEQ/L Anion Gap 10 MEQ/L Estimat Glomerular Filtration Rate 45 ML/MIN Lipase GREATER THAN 07727 U/L MDM Supervised Visit with REINA: No Narrative Course Patient seen briefly by me at 1715, this is a 77-year-old male with an admission diagnosis of gallstone pancreatitis, EMS is here to transport him, he has no active orders for morphine in the hospital his could not be reached, I have placed a one-time order for 4 morphine IV to be given prior to transportation to make his transportation more comfortable. Patient appears fairly comfortable but is still complaining of 8 out of [address] Diaz's records and do show that he does have a common bile stone Choco Gutiérrez MD Jul 21, 2017 17:16
[2017-07-21] MEDS: MORPHINE SULFATE 2 MG/ML INJ IV PRN (22:59)
[2017-07-22] VITALS (9 sets, daily range): BP systolic 140–156; BP diastolic 67–83; PULSE 89–102; RESP 18–20; TEMP 98.2–99.1; O2SAT 92–95
--- NOTE | 2017-07-22 00:48 | MB ---
cc: Ignacio Coles MD DATE OF CONSULT: 07/21/2017 REASON FOR CONSULTATION: Gallstone pancreatitis. HISTORY OF PRESENT ILLNESS: The patient is a very pleasant 77-year-old male who came in with very severe epigastric pain with nausea. This started after having barbecue and chips for dinner. PAST MEDICAL HISTORY: The patient has medical problems including coronary artery disease and history of prostate cancer, hyperlipidemia, type 2 diabetes mellitus and history of cataract surgery. REVIEW OF SYSTEMS: Negative except for GI which is indicated above. The patient denies any fevers or vomiting. ALLERGIES: HE HAS NO KNOWN ALLERGIES. MEDICATIONS: Include atorvastatin 20 mg p.o. at bedtime, omega 3 1200 mg daily, metoprolol ER 24 hour 50 mg p.o. daily, Norvasc 5 mg p.o. daily, Diovan 80 mg p.o. daily, aspirin 81 mg p.o. daily, tramadol 50 mg p.o. q. 8 hours p.r.n., gabapentin 300 mg p.o. at bedtime, metformin 500 mg p.o. daily, Novolin regular insulin 10 units subcutaneous as needed, glimepiride 2 mg p.o. daily, 4 mg p.o. at 1 p.m., vitamin C 1200 mg p.o. daily, vitamin D 2000 units p.o. daily. PHYSICAL EXAMINATION: GENERAL: Reveals a mildly obese male who is uncomfortable. VITAL SIGNS: Blood pressure 144/78, pulse 73, respirations 16, 98% sat on room air. HEENT: Sclerae anicteric, pupils are reactive. CHEST: Clear to auscultation. CARDIAC: Reveals regular rate and rhythm. ABDOMEN: Soft with severe epigastric tenderness with guarding and rebound. There is also pain in the right upper and left upper quadrants. There are no scars noted. There are no hernias noted. EXTREMITIES: Pulses are present. NEUROLOGIC: Nonfocal. LABORATORY DATA: Demonstrate WBC of 12.1 with hemoglobin 13.2, platelets 229,000. Chemistries demonstrate potassium 4.2, BUN and creatinine 25 and 1.5. Total bilirubin 1.0, AST 281, ALT 158, alkaline phosphatase 64, lipase greater than 30,000. IMAGING: CT of the abdomen and pelvis demonstrate: 1. No renal or ureteral stones, colonic diverticulosis. Liver demonstrates homogeneous density without lesion, no dilation of the biliary tree. 2. Small calcifications associated with the pancreatic head felt to be related to common duct stones. HIDA scan was performed which demonstrates nonvisualization of the gallbladder with 4 hour delayed images. Concern was for CBD obstruction. Since the patient was seen this morning, MRCP completed which demonstrated on definite evidence for choledocholithiasis. ASSESSMENT: Gallstone pancreatitis without evidence for common duct stone. PLAN: Repeat LFTs and lipase in the morning. If numbers are improved, patient can undergo laparoscopic cholecystectomy likely on , 07/23. I have discussed this with the patient and his and we will see the patient again in the morning to assess progress. Thank you Dr. Morales for asking us to see this very delightful gentleman. We will follow him with you. Ignacio Coles MD MAF/rt , 11:14 PM , 12:46 AM
[2017-07-22] MEDS: MORPHINE SULFATE 2 MG/ML INJ IV PRN ×2 (04:36→21:02)
[2017-07-22] MEDS: ONDANSETRON HCL 4 MG/2 ML VIAL IVP PRN ×2 (04:36→11:42)
[2017-07-22] MEDS: INSULIN ASPART SUPPLEMENTAL SCALE SQ SCH ×4 (08:00→21:00)
[2017-07-22] MEDS: SODIUM CHLORIDE 0.9% FLUSH 10 ML FLUSH IV FLUSH SCH ×2 (08:10→21:00)
[2017-07-22] MEDS: MORPHINE SULFATE 4 MG/ML INJ IV PUSH PRN ×3 (08:10→17:07)
--- NOTE | 2017-07-22 09:09 | HHI.PR ---
Subjective Remarks f/u; acute pancreatitis overall doing better. pain is better than last night. has some nausea but no emesis. Objective Vitals Vital Signs Date Time Temp Pulse Resp B/P (MAP) Pulse Ox O2 Delivery O2 Flow Rate FiO2 07/22/17 08:00 99.0 92 20 156/76 (102) 93 07/22/17 05:22 98.2 98 18 142/70 (94) 95 07/22/17 00:25 99.0 96 18 140/67 (91) 94 07/21/17 21:03 98.7 93 18 164/83 (110) 93 07/21/17 17:38 07/21/17 17:36 58 18 150/84 (106) 96 Room Air 07/21/17 15:00 79 16 152/89 (110) 95 Room Air 07/21/17 12:19 77 18 159/87 (111) 96 Room Air I/O 07/21/17 07/21/17 07/21/17 07/22/17 07/22/17 07/22/17 07:00 15:00 23:00 07:00 15:00 23:00 Intake Total 1000 ml Output Total 500 ml 1050 ml Balance 500 ml -1050 ml Intake IV Total 1000 ml Output Urine Total 500 ml 1050 ml # Voids 2 1 Result Diagram: 07/21/17 0311 07/21/17 0311 Imaging Last Impressions Abdomen/Pelvis CT 07/21/17 0357 Signed Impressions: Service Date/Time: Friday, July 21, 2017 04:00 - CONCLUSION: 1. No acute abnormality. In particular, no renal or ureteral stones. 2. Colonic diverticulosis without acute inflammation. Jaylen Raphael Jr., MD ADDENDUM: Upon further review there are 2 small calcifications associated with the pancreatic head measuring 2 mm respectively. These are felt to relate to common bile duct stones. No dilatation of the pancreatic duct or common bile duct observed. There is subtle stranding of the pancreatic head suggesting acute pancreatitis. A HIDA scan could be performed to evaluate the common bile duct patency. I have spoken with Dr. Diaz. Jaylen Raphael Jr., MD Hepatobiliary Scan Nuclear Medicine 07/21/17 0000 Signed Impressions: Service Date/Time: Friday, July 21, 2017 09:35 - CONCLUSION: 1. Nonvisualization of the gallbladder. 2. There is uptake of tracer within the liver but no excretion. Differential considerations are given above. 3. Delayed imaging for more definitive assessment is warranted. Griffin Pham MD ADDENDUM: 4 hour delayed images were obtained. Again, there is no evidence for activity in the gallbladder, bile duct or bowel. Differential considerations again include complete CBD obstruction versus acute hepatitis. Patel Ann MD Cholangiopancreatography MRI 07/21/17 0000 Signed Impressions: Service Date/Time: Friday, July 21, 2017 13:53 - CONCLUSION: Gall bladder wall thickening with some pericholecystic fluid. Differential diagnosis includes acute cholecystitis. No definite evidence for choledocholithiasis. The pancreatic duct is mildly prominent. Fluid mostly around pancreatic head could be characteristic of reported history of pancreatitis. Periportal edema in the liver which can be associated with hepatitis as well. Multiple bilateral renal cysts. Soto Munguia MD Objective Remarks GENERAL: This is a well-nourished, well-developed patient, in no apparent distress. CARDIOVASCULAR: Regular rate and regular rhythm without murmurs, gallops, or rubs. RESPIRATORY: Clear to auscultation. Breath sounds equal bilaterally. No wheezes , rales, or rhonchi. GASTROINTESTINAL: Abdomen soft, generalized tenderness, nondistended. Normal, active bowel sounds MUSCULOSKELETAL: Extremities without clubbing, cyanosis, or edema. NEURO: Alert & Oriented x4 to person, place, time, situation. Moves all ext x4 Medications and IVs Inpatient Medications Dextrose (D50w (Vial) Inj) 50 ml UNSCH PRN IV PUSH HYPOGLYCEMIA-SEE COMMENTS; Start 07/21/17 at 16:30 Famotidine (Pepcid Inj) 20 mg ONCE ONCE IV PUSH Last administered on at 03:26; Start 07/21/17 at 03:30; Stop 07/21/17 at 03:31; Status DC Glucagon (Glucagon Inj) 1 mg UNSCH PRN OTHER HYPOGLYCEMIA-SEE COMMENTS; Start 07/21/17 at 16:30 Insulin Aspart (NovoLOG SUPPLEMENTAL SCALE) 1 ACHS SLIDING SCALE SQ ; Start at 17:00 Morphine Sulfate (Morphine Inj) 4 mg ONCE ONCE IV PUSH Last administered on at 17:23; Start 07/21/17 at 17:15; Stop 07/21/17 at 17:16; Status DC Naloxone HCl (Narcan Inj) 0.4 mg UNSCH PRN IV PUSH SEE LABEL COMMENTS; Start at 05:15 Ondansetron HCl (Zofran Inj) 4 mg Q6H PRN IVP NAUSEA OR VOMITING Last administered on 07/22/17at 04:36; Start 07/21/17 at 05:15 Pantoprazole Sodium (Protonix Inj) 40 mg ONCE ONCE IVP Last administered on at 03:25; Start 07/21/17 at 03:30; Stop 07/21/17 at 03:31; Status DC Sodium Chloride (NS Flush) 2 ml BID IV FLUSH Last administered on 07/22/17at 08: 10; Start 07/21/17 at 09:00 A/P Problem List: (1) Cholecystitis ICD Code: K81.9 - Cholecystitis, unspecified (2) Pancreatitis ICD Code: K85.90 - Acute pancreatitis without necrosis or infection, unspecified (3) Biliary obstruction ICD Code: K83.1 - Obstruction of bile duct Assessment and Plan A/P Pancreatitis Biliary obstruction Possible cholecystitis Continue as needed pain treatments Nothing by mouth IV hydration GI consulted . surgery consult appreciated and for possible cholecystectomy later this week. acute kidney injury- improved- continue IV fluid and monitor. Hyperlipidemia Follow as an outpatient Coronary artery disease History of angina Currently asymptomatic Follow clinically Holding aspirin History of bladder cancer Presbycusis Unrelated to present status Follows in outpatient Diabetes mellitus type 2 Follow blood sugars Insulin sliding scale Diabetic diet DVT prophylaxis SCDs Discharge Planning work-up in progress- per GI and general surgery. not ready for discharge. Lanie Viera MD Jul 22, 2017 09:09
[2017-07-22 09:19] LABS: AUTOMATED NEUTROPHIL # 9.7 TH/MM3 (1.8-7.7); BASOPHIL % 0.1 % (0.0-2.0); HEMATOCRIT 38.4 % (39.0-51.0); HEMOGLOBIN 12.9 GM/DL (13.0-17.0); LYMPH % 8.1 % (9.0-44.0); LYMPHOCYTE # 0.9 TH/MM3 (1.0-4.8); MEAN CELL VOLUME 97.5 FL (80.0-100.0); MEAN CORPUSCULAR HEMOGLOBIN 32.8 PG (27.0-34.0); MEAN CORPUSCULAR HGB CONC 33.7 % (32.0-36.0); MEAN PLATELET VOLUME 7.9 FL (7.0-11.0); MONO % 7.8 % (0.0-8.0); MONOCYTE # 0.9 TH/MM3 (0-0.9); PLATELET COUNT 152 TH/MM3 (150-450); RED BLOOD COUNT 3.94 MIL/MM3 (4.50-5.90); RED CELL DISTRIBUTION WIDTH 14.1 % (11.6-17.2); WHITE BLOOD COUNT 11.6 TH/MM3 (4.0-11.0)
[2017-07-22 09:42] LABS: ALT (GPT) 449 U/L (12-78)
[2017-07-22 09:45] LABS: ALKALINE PHOSPHATASE 76 U/L (45-117); TOTAL BILIRUBIN ADULT 5.7 MG/DL (0.2-1.0)
[2017-07-22 09:48] LABS: ALBUMIN 3.5 GM/DL (3.4-5.0); AST (GOT) 543 U/L (15-37); BICARBONATE 25.7 MEQ/L (21.0-32.0); BLOOD UREA NITROGEN 21 MG/DL (7-18); CALCIUM 8.6 MG/DL (8.5-10.1); CHLORIDE 103 MEQ/L (98-107); CREATININE 1.23 MG/DL (0.60-1.30); GLOMERULAR FILTRATION RATE 57 ML/MIN (>89); GLUCOSE,RANDOM 175 MG/DL (74-106); SODIUM (NA) 139 MEQ/L (136-145)
[2017-07-22] MEDS: SODIUM CHLOR 0.9% 1000 ML INJ 1,000 ML IV SCH ×2 (11:53→21:11)
--- NOTE | 2017-07-22 12:07 | PD.CONS ---
HPI History of Present Illness This is a 77 year old M with PMH significant for history of bladder cancer, CAD , hyperlipidemia, DM type 2, presbycusis. He presented to the ER yesterday with complaints of abdominal pain that came on suddenly on Thursday night at approx 10:30. Pt had recently returned home from a restaurant where he had barbecue and corn on the cob. Associated nausea and one episode of emesis. Denies BRB or coffee ground emesis. Labs in ER revealed elevated LFTs and lipase > 30,000. HIDA scan done to evaluate revealed nonvisualization of the gallbladder, uptake of tracer within the liver but no excretion with differentials to include complete obstruction of CBD vs acute hepatitis. MRCP was also done --> Gallbladder wall thickening with some pericholecystic fluid. No definite evidence for choledocholithiasis. Pancreatic duct is mildly prominent. Fluid mostly around pancreatic head could be characteristic of reported history of pancreatitis. Periportal edema in the liver which can be associated with hepatitis as well. Decrease in lipase today with and increase in LFTs. Seen by GS yesterday who was planning on cholecystectomy for , however pending improvement in labs. Follow up from GS today pending. Pt denies history of pancreatitis. Family history significant for pancreatic cancer, his brother. Reports occasional ETOH, a few times a month, denies ETOH on Thursday prior to start of symptoms. Last EGD was approx ten years ago for an ulcer secondary to ASA use. He is unsure when his last colonoscopy was but states there were a few small polyps. (Haydee Johnson) PFSH Past Medical History History of bladder cancer Coronary artery disease Hyperlipidemia History of angina Diabetes mellitus type 2 Presbycusis Past Surgical History 3 stents and right coronary artery History of cataract surgery (Haydee Johnson) Coded Allergies: No Known Allergies (Verified Allergy, Unknown, 07/21/17) Family History Coronary artery disease in mother and father Social History Patient does not smoke, does not drink alcohol, does not use illicit substances. (Haydee Johnson) Review of Systems Gastrointestinal: COMPLAINS OF: Abdominal pain, Constipation, Nausea, Vomiting , DENIES: Black stools, Bloody stools, Diarrhea, Difficulty Swallowing, Odynophagia, Swelling of Abdomen, Heartburn, Hematemesis (Haydee Johnson) GI Exam Vitals I&O Vital Signs Date Time Temp Pulse Resp B/P (MAP) Pulse Ox O2 Delivery O2 Flow Rate FiO2 07/22/17 11:14 98.6 89 20 146/77 (100) 93 07/22/17 10:13 102 07/22/17 08:00 99.0 92 20 156/76 (102) 93 07/22/17 05:22 98.2 98 18 142/70 (94) 95 07/22/17 00:25 99.0 96 18 140/67 (91) 94 07/21/17 21:03 98.7 93 18 164/83 (110) 93 07/21/17 17:38 07/21/17 17:36 58 18 150/84 (106) 96 Room Air 07/21/17 15:00 79 16 152/89 (110) 95 Room Air 07/21/17 12:19 77 18 159/87 (111) 96 Room Air I/O 07/21/17 07/21/17 07/21/17 07/22/17 07/22/17 07/22/17 07:00 15:00 23:00 07:00 15:00 23:00 Intake Total 1000 ml Output Total 500 ml 1050 ml 300 ml Balance 500 ml -1050 ml -300 ml Intake IV Total 1000 ml Output Urine Total 500 ml 1050 ml 300 ml # Voids 2 1 Imaging Last Impressions Abdomen/Pelvis CT 07/21/17 0357 Signed Impressions: Service Date/Time: Friday, July 21, 2017 04:00 - CONCLUSION: 1. No acute abnormality. In particular, no renal or ureteral stones. 2. Colonic diverticulosis without acute inflammation. Jaylen Raphael Jr., MD ADDENDUM: Upon further review there are 2 small calcifications associated with the pancreatic head measuring 2 mm respectively. These are felt to relate to common bile duct stones. No dilatation of the pancreatic duct or common bile duct observed. There is subtle stranding of the pancreatic head suggesting acute pancreatitis. A HIDA scan could be performed to evaluate the common bile duct patency. I have spoken with Dr. Diaz. Jaylen Raphael Jr., MD Hepatobiliary Scan Nuclear Medicine 07/21/17 0000 Signed Impressions: Service Date/Time: Friday, July 21, 2017 09:35 - CONCLUSION: 1. Nonvisualization of the gallbladder. 2. There is uptake of tracer within the liver but no excretion. Differential considerations are given above. 3. Delayed imaging for more definitive assessment is warranted. Griffin Pham MD ADDENDUM: 4 hour delayed images were obtained. Again, there is no evidence for activity in the gallbladder, bile duct or bowel. Differential considerations again include complete CBD obstruction versus acute hepatitis. Patel Ann MD Cholangiopancreatography MRI 07/21/17 0000 Signed Impressions: Service Date/Time: Friday, July 21, 2017 13:53 - CONCLUSION: Gall bladder wall thickening with some pericholecystic fluid. Differential diagnosis includes acute cholecystitis. No definite evidence for choledocholithiasis. The pancreatic duct is mildly prominent. Fluid mostly around pancreatic head could be characteristic of reported history of pancreatitis. Periportal edema in the liver which can be associated with hepatitis as well. Multiple bilateral renal cysts. Soto Munguia MD Laboratory Test 07/22/17 08:17 White Blood Count 11.6 TH/MM3 Red Blood Count 3.94 MIL/MM3 Hemoglobin 12.9 GM/DL Hematocrit 38.4 % Mean Corpuscular Volume 97.5 FL Mean Corpuscular Hemoglobin 32.8 PG Mean Corpuscular Hemoglobin Concent 33.7 % Red Cell Distribution Width 14.1 % Platelet Count 152 TH/MM3 Mean Platelet Volume 7.9 FL Neutrophils (%) (Auto) 84.0 % Lymphocytes (%) (Auto) 8.1 % Monocytes (%) (Auto) 7.8 % Eosinophils (%) (Auto) 0.0 % Basophils (%) (Auto) 0.1 % Neutrophils # (Auto) 9.7 TH/MM3 Lymphocytes # (Auto) 0.9 TH/MM3 Monocytes # (Auto) 0.9 TH/MM3 Eosinophils # (Auto) 0.0 TH/MM3 Basophils # (Auto) 0.0 TH/MM3 CBC Comment DIFF FINAL Differential Comment Blood Urea Nitrogen 21 MG/DL Creatinine 1.23 MG/DL Random Glucose 175 MG/DL Total Protein 7.0 GM/DL Albumin 3.5 GM/DL Calcium Level 8.6 MG/DL Alkaline Phosphatase 76 U/L Aspartate Amino Transf (AST/SGOT) 543 U/L Alanine Aminotransferase (ALT/SGPT) 449 U/L Total Bilirubin 5.7 MG/DL Sodium Level 139 MEQ/L Potassium Level 4.1 MEQ/L Chloride Level 103 MEQ/L Carbon Dioxide Level 25.7 MEQ/L Anion Gap 10 MEQ/L Estimat Glomerular Filtration Rate 57 ML/MIN Lipase 6011 U/L Physical Examination HEENT: Normocephalic; atraumatic CHEST: Even/unlabored CARDIAC: RRR ABDOMEN: Soft, mildly distended, epigastric TTP; bowel sounds active EXTREMITIES: No clubbing, cyanosis, or edema. SKIN: Normal; no rash; no jaundice. EDUCATION AND DEVELOPMENT MANAGER: No focal deficits; alert and oriented times three. (Haydee Johnson) Assessment and Plan Plan Assessment: - Pancreatitis- likely biliary pancreatitis. Lipase > 30,000 on admission, rechecked today and now 6,011. Denies history of pancreatitis. Sx include abdominal pain that began suddenly on Thursday night with associated nausea and one episode of emesis. Occasional ETOH, a few times a month, denies ETOH prior to sx on Thursday. - Transaminitis- differentials include acute hepatitis via HIDA scan and MRCP T bili-5.7 AST-543 ALT-449 Alk phos-76 Denies history of liver issues HIDA --> Nonvisualization of the gallbladder. There is uptake of tracer within the liver but no excretion. MRCP --> Gallbladder wall thickening with pericholecystic fluid. No definite evidence for choledocholithiasis. Pancreatic duct is mildly prominent. Fluid mostly around pancreatic head coulc be characteristic of reported history of pancreatitis. Periportal edema in the liver which can be associated with hepatitis as well. GS following for possible cholecystectomy tomorrow Plan: NPO IVF Pain control Monitor LFTs, lipase Hepatitis panel Cholecystectomy per GS No indication for ERCP at this time given result of MRCP Will continue to follow Further recommendations based on clinical course and results of above Pt has been seen and examined by myself and Dr. Bolaños and this note is written on his behalf (Haydee Johnson) Physician Comments Seen and examined, plan as above. Thank you for the consult. (Shelly Bolaños MD) Haydee Johnson Jul 22, 2017 12:07 Shelly Bolaños MD Jul 22, 2017 13:20
--- NOTE | 2017-07-22 15:17 | HHI.PR ---
cc: Ignacio Coles MD Subjective Subjective Notes Resting in bed; at bedside State pain is better today but still present Objective Vitals/I&O Vital Signs Date Time Temp Pulse Resp B/P (MAP) Pulse Ox O2 Delivery O2 Flow Rate FiO2 07/22/17 14:10 89 07/22/17 11:14 98.6 20 146/77 (100) 93 07/21/17 17:36 Room Air Labs Laboratory Tests Test 07/22/17 08:17 07/22/17 13:19 White Blood Count 11.6 Red Blood Count 3.94 Hemoglobin 12.9 Hematocrit 38.4 Mean Corpuscular Volume 97.5 Mean Corpuscular Hemoglobin 32.8 Mean Corpuscular Hemoglobin Concent 33.7 Red Cell Distribution Width 14.1 Platelet Count 152 Mean Platelet Volume 7.9 Neutrophils (%) (Auto) 84.0 Lymphocytes (%) (Auto) 8.1 Monocytes (%) (Auto) 7.8 Eosinophils (%) (Auto) 0.0 Basophils (%) (Auto) 0.1 Neutrophils # (Auto) 9.7 Lymphocytes # (Auto) 0.9 Monocytes # (Auto) 0.9 Eosinophils # (Auto) 0.0 Basophils # (Auto) 0.0 CBC Comment DIFF FINAL Differential Comment Blood Urea Nitrogen 21 Creatinine 1.23 Random Glucose 175 Total Protein 7.0 Albumin 3.5 Calcium Level 8.6 Alkaline Phosphatase 76 Aspartate Amino Transf (AST/SGOT) 543 Alanine Aminotransferase (ALT/SGPT) 449 Total Bilirubin 5.7 Sodium Level 139 Potassium Level 4.1 Chloride Level 103 Carbon Dioxide Level 25.7 Anion Gap 10 Estimat Glomerular Filtration Rate 57 Lipase 6011 Cardiovascular: Regular Lungs: Clear Abdomen: Other (RUQ and LUQ tenderness with palpation ) Extremities: No edema A/P Assessment and Plan 77 year old male with GS pancreatitis -MRCP negative for choledocholithiasis ---no ERCP needed at this time--- Discussed with Haydee COLLINS -Elevated liver enzymes; repeat tomorrow -If liver enzymes and lipase better tomorrow can plan for lap eda tomorrow -If still elevated will delay surgery until better; will make that decision in the morning -okay for a few ice chips but NPO after MN -Discussed with patient and and all questions were answered Attending Note - Dr. Coles Abdominal pain better Will await repeat liver tests; if improving, will proceed with lap eda; if increasing, will need ERCP first. Discussed with patient and as above. The exam, history, and the medical decision-making described in the above note were completed with the assistance of the mid-level provider. I reviewed and agree with the findings presented. I attest that I had a [id number] encounter with the patient on the same day, and personally performed and documented my assessment and findings in the medical record. Charmaine Bennett/First Corrie COLLINS Jul 22, 2017 15:17 Ignacio Coles MD Jul 24, 2017 18:22
[2017-07-22] MEDS ORDERED: LACTATED RINGER'S 1000 ML IV PRN (19:30)
[2017-07-22] MEDS ORDERED: SODIUM CHLORID 0.9% 500 ML IV PRN (19:30)
[2017-07-22] MEDS ORDERED: POVIDONE IODINE 5% (ANTISEPSIS KIT) 4 APPLICATIONS EACH NARE PRN (19:30)
[2017-07-22] MEDS ORDERED: CHLORHEXIDINE GLUCONATE 2 % 1 PACK (2 CLOTHS) TOPICAL PRN (19:30)
[2017-07-22] MEDS ORDERED: METOPROLOL TARTRATE 25 MG TAB PO PRN (19:30)
[2017-07-23] VITALS (8 sets, daily range): BP systolic 135–162; BP diastolic 78–88; PULSE 87–100; RESP 16–20; TEMP 97.7–100.1; O2SAT 92–95
[2017-07-23 07:16] LABS: ALBUMIN 3.1 GM/DL (3.4-5.0); ALKALINE PHOSPHATASE 87 U/L (45-117); ALT (GPT) 310 U/L (12-78); AST (GOT) 207 U/L (15-37); BICARBONATE 26.7 MEQ/L (21.0-32.0); BLOOD UREA NITROGEN 16 MG/DL (7-18); CALCIUM 7.6 MG/DL (8.5-10.1); CHLORIDE 106 MEQ/L (98-107); CREATININE 1.05 MG/DL (0.60-1.30); GLOMERULAR FILTRATION RATE 68 ML/MIN (>89); GLUCOSE,RANDOM 163 MG/DL (74-106); SODIUM (NA) 143 MEQ/L (136-145); TOTAL BILIRUBIN ADULT 5.2 MG/DL (0.2-1.0); TOTAL PROTEIN 6.5 GM/DL (6.4-8.2)
[2017-07-23] MEDS: SODIUM CHLORIDE 0.9% FLUSH 10 ML FLUSH IV FLUSH SCH ×2 (07:55→22:18)
[2017-07-23] MEDS: MORPHINE SULFATE 4 MG/ML INJ IV PUSH PRN ×4 (07:55→22:16)
[2017-07-23] MEDS: ONDANSETRON HCL 4 MG/2 ML VIAL IVP PRN (07:55)
[2017-07-23] MEDS: SODIUM CHLOR 0.9% 1000 ML INJ 1,000 ML IV SCH ×3 (07:55→22:16)
[2017-07-23] MEDS: INSULIN ASPART SUPPLEMENTAL SCALE SQ SCH ×4 (08:00→22:18)
[2017-07-23] MEDS: MORPHINE SULFATE 2 MG/ML INJ IV PRN (10:25)
--- NOTE | 2017-07-23 12:57 | HHI.PR ---
Subjective Remarks Patient reports intermittent right upper quadrant pain. Mild nausea but no vomiting. Surgery planning for lap eda today. Objective Vitals Vital Signs Date Time Temp Pulse Resp B/P (MAP) Pulse Ox O2 Delivery O2 Flow Rate FiO2 07/23/17 12:27 91 07/23/17 09:16 97.7 96 18 154/83 (106) 95 07/23/17 05:30 99.5 100 17 135/80 (98) 93 07/23/17 00:30 98.7 96 18 158/85 (109) 93 07/22/17 20:46 99.1 99 18 156/83 (107) 93 07/22/17 20:00 100 07/22/17 16:24 98.5 98 20 154/79 (104) 92 07/22/17 14:10 89 I/O 07/22/17 07/22/17 07/22/17 07/23/17 07/23/17 07/23/17 07:00 15:00 23:00 07:00 15:00 23:00 Intake Total 1000 ml 0 ml 990 ml Output Total 300 ml Balance 700 ml 0 ml 990 ml Intake Oral 0 ml 0 ml IV Total 1000 ml 990 ml Output Urine Total 300 ml # Voids 1 3 3 # Bowel Movements 0 0 Result Diagram: 07/22/17 0817 07/23/17 0542 Objective Remarks GENERAL: This is a well-nourished, well-developed patient, in no apparent distress. CARDIOVASCULAR: Normal rate and regular rhythm without murmurs, gallops, or rubs. RESPIRATORY: Good respiratory efforts. Breath sounds equal and clear to auscultation bilaterally. GASTROINTESTINAL: Abdomen soft, right upper quadrant tenderness to palpation. Positive Mcintyre sign. MUSCULOSKELETAL: Extremities without cyanosis, or edema. NEURO: Alert & Oriented x4 to person, place, time, situation. Moves all ext x4 PSYCH: Appropriate mood and affect. A/P Problem List: (1) Cholecystitis ICD Code: K81.9 - Cholecystitis, unspecified (2) Pancreatitis ICD Code: K85.90 - Acute pancreatitis without necrosis or infection, unspecified (3) Biliary obstruction ICD Code: K83.1 - Obstruction of bile duct Assessment and Plan 77-year-old male with: Pancreatitis Biliary obstruction Possible cholecystitis Continue as needed pain treatments Nothing by mouth IV hydration GI and surgery following. Plan for lap eda. Lipase and LFT improved. Total Bili stable but still elevated. Acute kidney injury- Resolved- continue IV fluid and monitor for now. Coronary artery disease History of angina Currently asymptomatic Follow clinically Holding aspirin Diabetes mellitus type 2 Follow blood sugars Insulin sliding scale Diabetic diet DVT prophylaxis SCDs Discharge Planning Plan for surgery today Candelario Mac MD Jul 23, 2017 12:57
--- NOTE | 2017-07-23 14:04 | HHI.GIFU ---
Subjective Remarks Pt resting in bed in NAD. at bedside. c/o RUQ pain. some nausea. (Dahiana Toledo) Objective Vitals I&O Vital Signs Date Time Temp Pulse Resp B/P (MAP) Pulse Ox O2 Delivery O2 Flow Rate FiO2 07/23/17 12:27 91 07/23/17 09:16 97.7 96 18 154/83 (106) 95 07/23/17 05:30 99.5 100 17 135/80 (98) 93 07/23/17 00:30 98.7 96 18 158/85 (109) 93 07/22/17 20:46 99.1 99 18 156/83 (107) 93 07/22/17 20:00 100 07/22/17 16:24 98.5 98 20 154/79 (104) 92 07/22/17 14:10 89 I/O 07/22/17 07/22/17 07/22/17 07/23/17 07/23/17 07/23/17 07:00 15:00 23:00 07:00 15:00 23:00 Intake Total 1000 ml 0 ml 990 ml Output Total 300 ml Balance 700 ml 0 ml 990 ml Intake Oral 0 ml 0 ml IV Total 1000 ml 990 ml Output Urine Total 300 ml # Voids 1 3 3 # Bowel Movements 0 0 Laboratory Laboratory Tests Test 07/23/17 05:42 Blood Urea Nitrogen 16 Creatinine 1.05 Random Glucose 163 Total Protein 6.5 Albumin 3.1 Calcium Level 7.6 Alkaline Phosphatase 87 Aspartate Amino Transf (AST/SGOT) 207 Alanine Aminotransferase (ALT/SGPT) 310 Total Bilirubin 5.2 Sodium Level 143 Potassium Level 3.6 Chloride Level 106 Carbon Dioxide Level 26.7 Anion Gap 10 Estimat Glomerular Filtration Rate 68 Lipase 962 Imaging Last Impressions Abdomen/Pelvis CT 07/21/17 0357 Signed Impressions: Service Date/Time: Friday, July 21, 2017 04:00 - CONCLUSION: 1. No acute abnormality. In particular, no renal or ureteral stones. 2. Colonic diverticulosis without acute inflammation. Jaylen Raphael Jr., MD ADDENDUM: Upon further review there are 2 small calcifications associated with the pancreatic head measuring 2 mm respectively. These are felt to relate to common bile duct stones. No dilatation of the pancreatic duct or common bile duct observed. There is subtle stranding of the pancreatic head suggesting acute pancreatitis. A HIDA scan could be performed to evaluate the common bile duct patency. I have spoken with Dr. Diaz. Jaylen Raphael Jr., MD Hepatobiliary Scan Nuclear Medicine 07/21/17 0000 Signed Impressions: Service Date/Time: Friday, July 21, 2017 09:35 - CONCLUSION: 1. Nonvisualization of the gallbladder. 2. There is uptake of tracer within the liver but no excretion. Differential considerations are given above. 3. Delayed imaging for more definitive assessment is warranted. Griffin Pham MD ADDENDUM: 4 hour delayed images were obtained. Again, there is no evidence for activity in the gallbladder, bile duct or bowel. Differential considerations again include complete CBD obstruction versus acute hepatitis. Patel Ann MD Cholangiopancreatography MRI 07/21/17 0000 Signed Impressions: Service Date/Time: Friday, July 21, 2017 13:53 - CONCLUSION: Gall bladder wall thickening with some pericholecystic fluid. Differential diagnosis includes acute cholecystitis. No definite evidence for choledocholithiasis. The pancreatic duct is mildly prominent. Fluid mostly around pancreatic head could be characteristic of reported history of pancreatitis. Periportal edema in the liver which can be associated with hepatitis as well. Multiple bilateral renal cysts. Soto Munguia MD Physical Exam HEENT: PERRL; normocephalic; atraumatic; CHEST: CTA CARDIAC: RRR ABDOMEN: Soft, protuberant, RUQ TTP; no hepatosplenomegaly; bowel sounds are present in all four quadrants. EXTREMITIES: No clubbing, cyanosis, or edema. SKIN: Normal; no rash; + jaundice. HOG SCALDER: No focal deficits; alert and oriented times three. (Dahiana Toledo [facility]) Assessment and Plan Plan Assessment: - Pancreatitis- likely biliary pancreatitis. Lipase > 30,000 on admission, rechecked today and now 6,011. Denies history of pancreatitis. Sx include abdominal pain that began suddenly on Thursday night with associated nausea and one episode of emesis. Occasional ETOH, a few times a month, denies ETOH prior to sx on Thursday. - Transaminitis- differentials include acute hepatitis via HIDA scan and MRCP T bili-5.7 AST-543 ALT-449 Alk phos-76 Denies history of liver issues HIDA --> Nonvisualization of the gallbladder. There is uptake of tracer within the liver but no excretion. MRCP --> Gallbladder wall thickening with pericholecystic fluid. No definite evidence for choledocholithiasis. Pancreatic duct is mildly prominent. Fluid mostly around pancreatic head coulc be characteristic of reported history of pancreatitis. Periportal edema in the liver which can be associated with hepatitis as well. GS following for possible cholecystectomy tomorrow 07/23/17 was going for lap eda today but this was cancelled by GS d/t LFTs not improving. his lipase did decrease today. Plan: ERCP today obtain consent NPO IVF Pain control Monitor labs Pt has been seen and examined by myself and Dr. Bolaños and this note is written on his behalf (Dahiana Toledo) Physician Comments Discussed with Dr Coles, will plan ERCP today. Further recommendations to follow pending findings. (Shelly Bolaños MD) Dahiana Toledo Jul 23, 2017 14:04 Shelly Bolaños MD Jul 23, 2017 14:36
--- NOTE | 2017-07-23 14:28 | EKG ---
Date Performed: 07/22/2017 Time Performed: 20:25:45 PTAGE: 77 years EKG: SINUS TACHYCARDIA RIGHT BUNDLE BRANCH BLOCK INFERIOR MYOCARDIAL INFARCTION , PROBABLY OLD A BNORMAL ECG NO PREVIOUS TRACING DOCTOR: Malia Quinones Interpretating Date/Time 07/23/2017 14:27:31
--- NOTE | 2017-07-23 14:52 | HHI.PR ---
cc: Ignacio Coles MD Subjective Subjective Notes Sitting on the side of the bed in pain at bedside Objective Vitals/I&O Vital Signs Date Time Temp Pulse Resp B/P (MAP) Pulse Ox O2 Delivery O2 Flow Rate FiO2 07/23/17 12:27 91 07/23/17 09:16 97.7 18 154/83 (106) 95 07/21/17 17:36 Room Air Labs Laboratory Tests Test 07/23/17 05:42 Blood Urea Nitrogen 16 Creatinine 1.05 Random Glucose 163 Total Protein 6.5 Albumin 3.1 Calcium Level 7.6 Alkaline Phosphatase 87 Aspartate Amino Transf (AST/SGOT) 207 Alanine Aminotransferase (ALT/SGPT) 310 Total Bilirubin 5.2 Sodium Level 143 Potassium Level 3.6 Chloride Level 106 Carbon Dioxide Level 26.7 Anion Gap 10 Estimat Glomerular Filtration Rate 68 Lipase 962 Cardiovascular: Regular Lungs: Clear Abdomen: Other (tender to palpation ) Extremities: No edema A/P Assessment and Plan 77 year old male with GS pancreatitis -MRCP negative for choledocholithiasis but liver enzymes still remain elevated -Discussed with GI---plan for ERCP tomorrow -If liver enzymes and lipase better tomorrow can plan for lap eda tomorrow -Obtain consents -NPO after MN -Discussed with patient and and all questions were answered Charmaine Bennett/First Corrie COLLINS Jul 23, 2017 14:52
--- NOTE | 2017-07-23 15:23 | HHI.PR ---
cc: Ignacio Coles MD Subjective Subjective Notes Sitting on the side of the bed in pain at bedside Objective Vitals/I&O Vital Signs Date Time Temp Pulse Resp B/P (MAP) Pulse Ox O2 Delivery O2 Flow Rate FiO2 07/23/17 15:10 94 07/23/17 13:15 98.3 16 162/88 (112) 92 07/21/17 17:36 Room Air Labs Laboratory Tests Test 07/23/17 05:42 Blood Urea Nitrogen 16 Creatinine 1.05 Random Glucose 163 Total Protein 6.5 Albumin 3.1 Calcium Level 7.6 Alkaline Phosphatase 87 Aspartate Amino Transf (AST/SGOT) 207 Alanine Aminotransferase (ALT/SGPT) 310 Total Bilirubin 5.2 Sodium Level 143 Potassium Level 3.6 Chloride Level 106 Carbon Dioxide Level 26.7 Anion Gap 10 Estimat Glomerular Filtration Rate 68 Lipase 962 Cardiovascular: Regular Lungs: Clear Abdomen: Other (tender to palpation ) Extremities: No edema A/P Assessment and Plan 77 year old male with GS pancreatitis -MRCP negative for choledocholithiasis but liver enzymes still remain elevated -Discussed with GI---plan for ERCP today -If liver enzymes and lipase better tomorrow can plan for lap eda tomorrow -Obtain consents -NPO after MN -Discussed with patient and and all questions were answered Attending Note - Dr. Coles Abominal pain better As above; await ERCP results The exam, history, and the medical decision-making described in the above note were completed with the assistance of the mid-level provider. I reviewed and agree with the findings presented. I attest that I had a [id number] encounter with the patient on the same day, and personally performed and documented my assessment and findings in the medical record. Charmaine Bennett DATA SME/Drum Saw Operator DATA SME Jul 23, 2017 15:23 Ignacio Coles MD Jul 24, 2017 18:21
--- NOTE | 2017-07-23 16:03 | GIPROC ---
[facility] [address] [facility]. [facility], [address] ERCP PROCEDURE REPORT EXAM DATE: 07/23/2017 PATIENT NAME: Choco Philip MR #: [id number] BIRTHDATE: 1940 ATTENDING: Shelly Bolaños MD ORDER #: [id number] PRODUCT MANAGER MEDICAL DEVICE: Ethan Emerson and Evangelina Rai STATUS: inpatient INDICATIONS: The patient is a 77 yr old male here for an ERCP due to suspected or rule out bile duct stones PROCEDURE PERFORMED: ERCP MEDICATIONS: None and Per Anesthesia. CONSENT: The patient understands the risks and benefits of the procedure and understands that these risks include, but are not limited to: sedation, allergic reaction, infection, perforation and/or bleeding. Alternative means of evaluation and treatment include, among others: physical exam, x-rays, and/or surgical intervention. The patient elects to proceed with this endoscopic procedure. medical equipment was checked for proper function. Hand hygiene and appropriate measures for infection prevention was taken. After the risks, benefits and alternatives of the procedure were thoroughly explained, Informed was verified, confirmed and timeout was successfully executed by the treatment team. With the patient in left semi-prone position, medications were administered intravenously.The [employer]ax [id number] was passed from the mouth into the esophagus and further advanced from the esophagus into the stomach. From stomach scope was directed to the second portion of the duodenum. Major papilla was aligned with the duodenoscope. The scope position was confirmed fluoroscopically. Rest of the findings/therapeutics are given below. The scope was then completely withdrawn from the patient and the procedure completed. The pulse, BP, and O2 saturation were monitored and documented by the physician and the nursing staff throughout the entire procedure. The patient was cared for as planned according to standard protocol. The patient was then discharged to recovery in stable condition and with appropriate post procedure care. The ampulla was located the second portion of the duodenum. The ampulla was small and difficult to locate. The ampulla appeared distorted. Multiple ulcers seen in theduodenum ADVERSE EVENT: There were no complications. IMPRESSIONS: The ampulla was small and difficult to locate. Ampulla appeared distorted and scars of duodenal ulcers around the second part of the duodenum. RECOMMENDATIONS: Cholecystectomy REPEAT EXAM: As needed Shelly Bolaños MD eSigned: Shelly Bolaños MD 07/23/2017 4:02 PM cc:
[2017-07-23] MEDS ORDERED: DO NOT ADM ANY ANTICOAGULANT DRUGS PRN (16:08)
[2017-07-23] MEDS ORDERED: LACTATED RINGER'S 1000 ML INJ 500 ML IV ONE (16:15)
[2017-07-24] VITALS (10 sets, daily range): BP systolic 143–156; BP diastolic 75–90; PULSE 80–107; RESP 17–22; TEMP 98.5–100; O2SAT 93–97
[2017-07-24] MEDS: MORPHINE SULFATE 4 MG/ML INJ IV PUSH PRN ×3 (02:18→09:08)
[2017-07-24 07:36] LABS: HEMATOCRIT 38.7 % (39.0-51.0); HEMOGLOBIN 12.9 GM/DL (13.0-17.0); MEAN CELL VOLUME 98.6 FL (80.0-100.0); MEAN CORPUSCULAR HEMOGLOBIN 32.9 PG (27.0-34.0); MEAN CORPUSCULAR HGB CONC 33.3 % (32.0-36.0); MEAN PLATELET VOLUME 8.5 FL (7.0-11.0); PLATELET COUNT 119 TH/MM3 (150-450); RED BLOOD COUNT 3.93 MIL/MM3 (4.50-5.90); RED CELL DISTRIBUTION WIDTH 14.6 % (11.6-17.2); WHITE BLOOD COUNT 11.3 TH/MM3 (4.0-11.0)
[2017-07-24 08:05] LABS: ALBUMIN 2.9 GM/DL (3.4-5.0); CALCIUM 7.6 MG/DL (8.5-10.1); CREATININE 1.04 MG/DL (0.60-1.30); DIRECT BILIRUBIN ADULT 5.3 MG/DL (0.0-0.2)
[2017-07-24 08:08] LABS: INDIRECT BILIRUBIN 1.4 MG/DL (0.0-0.8); TOTAL BILIRUBIN ADULT 6.7 MG/DL (0.2-1.0); TOTAL PROTEIN 6.5 GM/DL (6.4-8.2)
[2017-07-24] MEDS: SODIUM CHLORIDE 0.9% FLUSH 10 ML FLUSH IV FLUSH SCH ×2 (09:00→21:00)
[2017-07-24] MEDS: SODIUM CHLOR 0.9% 1000 ML INJ 1,000 ML IV SCH ×2 (09:02→13:11)
[2017-07-24] MEDS: INSULIN ASPART SUPPLEMENTAL SCALE SQ SCH ×3 (09:02→21:00)
--- NOTE | 2017-07-24 11:31 | HHI.PR ---
Subjective Remarks Patient reports persistent right upper quadrant abdominal pain that comes in waves. No nausea or vomiting today. Lap eda was postponed yesterday and he underwent ERCP. Will have lap eda today. Objective Vitals Vital Signs Date Time Temp Pulse Resp B/P (MAP) Pulse Ox O2 Delivery O2 Flow Rate FiO2 07/24/17 10:01 97 07/24/17 07:36 100.0 95 20 156/90 (112) 94 07/24/17 05:00 98.8 80 20 145/85 (105) 96 07/24/17 03:56 93 07/24/17 00:40 98.9 89 19 148/84 (105) 96 07/24/17 00:20 107 07/23/17 21:15 100.1 97 20 156/86 (109) 95 07/23/17 18:55 99.0 88 18 151/78 (102) 95 07/23/17 17:15 97.6 85 16 153/85 (107) 95 Nasal Cannula 2 07/23/17 17:00 89 16 151/87 (108) 94 Nasal Cannula 2 07/23/17 16:45 93 16 157/82 (107) 98 Nasal Cannula 3 07/23/17 16:30 96 17 161/84 (109) 97 Nasal Cannula 3 07/23/17 16:15 102 17 161/86 (111) 96 Nasal Cannula 3 07/23/17 16:05 97.6 110 20 143/82 (102) 94 Nasal Cannula 3 07/23/17 15:39 97.8 86 20 152/68 (96) 96 Nasal Cannula 2 07/23/17 15:10 94 07/23/17 13:15 98.3 87 16 162/88 (112) 92 07/23/17 12:27 91 I/O 07/23/17 07/23/17 07/23/17 07/24/17 07/24/17 07/24/17 07:00 15:00 23:00 07:00 15:00 23:00 Intake Total 990 ml 2200 ml 1650 ml 1000 ml Output Total 0 ml 425 ml Balance 990 ml 2200 ml 1225 ml 1000 ml Intake Oral 0 ml 800 ml 700 ml IV Total 990 ml 500 ml 950 ml 1000 ml Other 900 ml Output Urine Total 0 ml 425 ml # Voids 3 0 4 # Bowel Movements 0 0 0 Result Diagram: 07/24/17 0603 07/24/17 0603 Objective Remarks GENERAL: This is a well-nourished, well-developed patient, in no apparent distress. CARDIOVASCULAR: Normal rate and regular rhythm without murmurs, gallops, or rubs. RESPIRATORY: Good respiratory efforts. Breath sounds equal and clear to auscultation bilaterally. GASTROINTESTINAL: Abdomen soft, right upper quadrant tenderness to palpation. Positive Mcintyre sign. MUSCULOSKELETAL: Extremities without cyanosis, or edema. NEURO: Alert & Oriented x4 to person, place, time, situation. Moves all ext x4 PSYCH: Appropriate mood and affect. A/P Problem List: (1) Cholecystitis ICD Code: K81.9 - Cholecystitis, unspecified (2) Pancreatitis ICD Code: K85.90 - Acute pancreatitis without necrosis or infection, unspecified (3) Biliary obstruction ICD Code: K83.1 - Obstruction of bile duct Assessment and Plan 77-year-old male with: Pancreatitis Biliary obstruction Possible cholecystitis Continue as needed pain medications Nothing by mouth IV hydration GI and surgery following. s/p ERCP y which revealed scarring, duodenal ulcers, ampulla distorted. Plan for lap eda today. Acute kidney injury- Resolved- continue IV fluid and monitor for now. Coronary artery disease History of angina Currently asymptomatic Follow clinically Holding aspirin Diabetes mellitus type 2 Follow blood sugars Insulin sliding scale Diabetic diet DVT prophylaxis SCDs Discharge Planning Plan for surgery today Candelario Mac MD Jul 24, 2017 11:31
[2017-07-24] MEDS ORDERED: SUCCINYLCHOLINE CHLORIDE 100 MG/5 ML SYRINGE IV PUSH ONE (12:00)
[2017-07-24] MEDS ORDERED: PHENYLEPHRINE HCL 10 MG/ML VIAL IV ONE (12:00)
[2017-07-24] MEDS ORDERED: SODIUM CHLORIDE 0.9% 20 ML VIAL IV ONE (12:00)
[2017-07-24] MEDS ORDERED: METOPROLOL TARTRATE 5 MG/5 ML VIAL IV ONE (12:00)
[2017-07-24] MEDS ORDERED: LIDOCAINE HCL 1% PF 5 ML SYRINGE OTHER ONE (12:00)
[2017-07-24] MEDS ORDERED: STERILE WATER FOR INJECTION 20 ML VIAL IV ONE (12:00)
[2017-07-24] MEDS ORDERED: ESMOLOL HCL 100 MG/10 ML VIAL IV ONE (12:00)
[2017-07-24] MEDS ORDERED: PHENYLEPH/NS 1000 MCG/10 ML SYR IV ONE (12:00)
[2017-07-24] MEDS ORDERED: ONDANSETRON HCL 4 MG/2 ML VIAL IV ONE (12:00)
[2017-07-24] MEDS ORDERED: ROCURONIUM INJ 50 MG/5 ML SYRINGE IV PUSH ONE (12:00)
[2017-07-24] MEDS ORDERED: NORMOSOL R INJ 1,000 ML IV ONE (12:00)
[2017-07-24] MEDS ORDERED: DEXAMETHASONE SOD PHOS 4 MG/ML VIAL IV ONE (12:00)
[2017-07-24] MEDS ORDERED: PROPOFOL 200 MG/20 ML AMP IV ONE (12:00)
--- NOTE | 2017-07-24 14:44 | HHI.GIFU ---
Subjective Remarks pt resting in bed with continued abd pain. going for lap eda (Dahiana Toledo) Objective Vitals I&O Vital Signs Date Time Temp Pulse Resp B/P (MAP) Pulse Ox O2 Delivery O2 Flow Rate FiO2 07/24/17 11:39 99.4 97 20 146/81 (102) 94 07/24/17 10:01 97 07/24/17 07:36 100.0 95 20 156/90 (112) 94 07/24/17 05:00 98.8 80 20 145/85 (105) 96 07/24/17 03:56 93 07/24/17 00:40 98.9 89 19 148/84 (105) 96 07/24/17 00:20 107 07/23/17 21:15 100.1 97 20 156/86 (109) 95 07/23/17 18:55 99.0 88 18 151/78 (102) 95 07/23/17 17:15 97.6 85 16 153/85 (107) 95 Nasal Cannula 2 07/23/17 17:00 89 16 151/87 (108) 94 Nasal Cannula 2 07/23/17 16:45 93 16 157/82 (107) 98 Nasal Cannula 3 07/23/17 16:30 96 17 161/84 (109) 97 Nasal Cannula 3 07/23/17 16:15 102 17 161/86 (111) 96 Nasal Cannula 3 07/23/17 16:05 97.6 110 20 143/82 (102) 94 Nasal Cannula 3 07/23/17 15:39 97.8 86 20 152/68 (96) 96 Nasal Cannula 2 07/23/17 15:10 94 I/O 07/23/17 07/23/17 07/23/17 07/24/17 07/24/17 07/24/17 07:00 15:00 23:00 07:00 15:00 23:00 Intake Total 990 ml 2200 ml 1650 ml 1000 ml Output Total 0 ml 425 ml Balance 990 ml 2200 ml 1225 ml 1000 ml Intake Oral 0 ml 800 ml 700 ml IV Total 990 ml 500 ml 950 ml 1000 ml Other 900 ml Output Urine Total 0 ml 425 ml # Voids 3 0 4 # Bowel Movements 0 0 0 Laboratory Laboratory Tests Test 07/24/17 06:03 White Blood Count 11.3 Red Blood Count 3.93 Hemoglobin 12.9 Hematocrit 38.7 Mean Corpuscular Volume 98.6 Mean Corpuscular Hemoglobin 32.9 Mean Corpuscular Hemoglobin Concent 33.3 Red Cell Distribution Width 14.6 Platelet Count 119 Mean Platelet Volume 8.5 Blood Urea Nitrogen 13 Creatinine 1.04 Random Glucose 153 Total Protein 6.5 Albumin 2.9 Calcium Level 7.6 Alkaline Phosphatase 117 Aspartate Amino Transf (AST/SGOT) 133 Alanine Aminotransferase (ALT/SGPT) 243 Total Bilirubin 6.7 Direct Bilirubin 5.3 Sodium Level 138 Potassium Level 3.3 Chloride Level 103 Carbon Dioxide Level 26.0 Anion Gap 9 Estimat Glomerular Filtration Rate 69 Indirect Bilirubin 1.4 Imaging Last Impressions Abdomen/Pelvis CT 07/21/17 0357 Signed Impressions: Service Date/Time: Friday, July 21, 2017 04:00 - CONCLUSION: 1. No acute abnormality. In particular, no renal or ureteral stones. 2. Colonic diverticulosis without acute inflammation. Jaylen Raphael Jr., MD ADDENDUM: Upon further review there are 2 small calcifications associated with the pancreatic head measuring 2 mm respectively. These are felt to relate to common bile duct stones. No dilatation of the pancreatic duct or common bile duct observed. There is subtle stranding of the pancreatic head suggesting acute pancreatitis. A HIDA scan could be performed to evaluate the common bile duct patency. I have spoken with Dr. Diaz. Jaylen Raphael Jr., MD Hepatobiliary Scan Nuclear Medicine 07/21/17 0000 Signed Impressions: Service Date/Time: Friday, July 21, 2017 09:35 - CONCLUSION: 1. Nonvisualization of the gallbladder. 2. There is uptake of tracer within the liver but no excretion. Differential considerations are given above. 3. Delayed imaging for more definitive assessment is warranted. Griffin Pham MD ADDENDUM: 4 hour delayed images were obtained. Again, there is no evidence for activity in the gallbladder, bile duct or bowel. Differential considerations again include complete CBD obstruction versus acute hepatitis. Patel Ann MD Cholangiopancreatography MRI 07/21/17 0000 Signed Impressions: Service Date/Time: Friday, July 21, 2017 13:53 - CONCLUSION: Gall bladder wall thickening with some pericholecystic fluid. Differential diagnosis includes acute cholecystitis. No definite evidence for choledocholithiasis. The pancreatic duct is mildly prominent. Fluid mostly around pancreatic head could be characteristic of reported history of pancreatitis. Periportal edema in the liver which can be associated with hepatitis as well. Multiple bilateral renal cysts. Soto Munguia MD Physical Exam HEENT: PERRL; normocephalic; atraumatic; CHEST: CTA CARDIAC: RRR ABDOMEN: Soft, protuberant, RUQ TTP; no hepatosplenomegaly; bowel sounds are present in all four quadrants. EXTREMITIES: No clubbing, cyanosis, or edema. SKIN: Normal; no rash; + jaundice. BUSINESS INTELLIGENCE ETL DEVELOPER: No focal deficits; alert and oriented times three. (Dahiana Toledo) Assessment and Plan Plan Assessment: - Pancreatitis- likely biliary pancreatitis. Lipase > 30,000 on admission, rechecked today and now 6,011. Denies history of pancreatitis. Sx include abdominal pain that began suddenly on Thursday night with associated nausea and one episode of emesis. Occasional ETOH, a few times a month, denies ETOH prior to sx on Thursday. - Transaminitis- differentials include acute hepatitis via HIDA scan and MRCP T bili-5.7 AST-543 ALT-449 Alk phos-76 Denies history of liver issues HIDA --> Nonvisualization of the gallbladder. There is uptake of tracer within the liver but no excretion. MRCP --> Gallbladder wall thickening with pericholecystic fluid. No definite evidence for choledocholithiasis. Pancreatic duct is mildly prominent. Fluid mostly around pancreatic head coulc be characteristic of reported history of pancreatitis. Periportal edema in the liver which can be associated with hepatitis as well. following for possible cholecystectomy tomorrow 07/23/17 was going for lap eda today but this was cancelled by GS d/t LFTs not improving. his lipase did decrease today. 07/24/17 LFTs remain elevated. s/p ERCP yesterday foudn scarring, duodenal ulcers, ampulla distorted. lap eda today. Plan: - diet per GS - await lap eda - monitor labs - further recs to follow Pt has been seen and examined by myself and Dr. Bolaños and this note is written on his behalf (Dahiana Toledo) Physician Comments For eda today. Will follow LFT's after surgery. Further recommendations to follow. (Shelly Bolaños MD) Dahiana Toledo Jul 24, 2017 14:44 Shelly Bolaños MD Jul 24, 2017 15:01
[2017-07-24] MEDS ORDERED: metroNIDAZOLE 500 MG INJ 100 ML IV ONE (14:50)
[2017-07-24] MEDS ORDERED: ceFAZolin 2 GM PREMIX 50 ML ONE (14:51)
[2017-07-24] MEDS ORDERED: BUPIVACAINE/EPINEPHRINE 0.25% PF 10 ML VIAL ONE (14:51)
[2017-07-24] MEDS ORDERED: ACETAMINOPHEN 1000 MG/100 ML 100 ML IV ONE (15:09)
[2017-07-24] MEDS ORDERED: SODIUM CHLORID 0.9% 500 ML IV PRN (15:30)
[2017-07-24] MEDS ORDERED: POVIDONE IODINE 5% (ANTISEPSIS KIT) 4 APPLICATIONS EACH NARE PRN (15:30)
[2017-07-24] MEDS ORDERED: METOPROLOL TARTRATE 25 MG TAB PO PRN (15:30)
[2017-07-24] MEDS ORDERED: LACTATED RINGER'S 1000 ML IV PRN (15:30)
[2017-07-24] MEDS ORDERED: CHLORHEXIDINE GLUCONATE 2 % 1 PACK (2 CLOTHS) TOPICAL PRN (15:30)
[2017-07-24] MEDS ORDERED: INSULIN HUMAN REGULAR 1,000 UNITS/10 ML VIAL SQ PRN (15:30)
[2017-07-24] MEDS ORDERED: BUPIVACAINE/EPINEPHRINE 0.25% 50 ML VIAL ONE (15:45)
--- NOTE | 2017-07-24 16:55 | RADRPT ---
EXAM DATE/TIME: 07/24/2017 15:34 [facility] COMPARISON: FLUOROSCOPY PORTABLE UP TO 1HR, July 23, 2017, 0:00. INDICATIONS : Gallstones and pancreatitis. FLUORO TIME: .12 minutes IMAGE COUNT: 3 MEDICAL HISTORY : Hypertension. Diabetes mellitus type II. Carcinoma, bladder. SURGICAL HISTORY : Coronary artery stent. ENCOUNTER: Subsequent ACUITY: 3 days PAIN SCORE: Non-responsive. LOCATION: Abdomen. PROCEDURE: CHOLANGIOGRAM, OPERATIVE 1. Intraoperative cholangiogram. In the operating room, the cystic duct stump was injected and radiographs obtained. The examination demonstrates the common bile duct to be normal in caliber. No retained stone is seen within the common duct. There is spillage of contrast from the ampulla into the small bowel. There is filling of the pancreatic duct. CONCLUSION: No evidence of common duct stone. Griffin Pham MD on July 24, 2017 at 16:51 Board Certified Radiologist. This report was verified electronically.
[2017-07-24] MEDS ORDERED: IOHEXOL 350 MG/ML 50 ML BTL (for RAD DIAG) OTHER ONE (18:12)
--- NOTE | 2017-07-24 18:15 | HHI.PR ---
cc: Ignacio Coles MD Immediate Post Op Note Procedure Date: Jul 24, 2017 Pre Op Diagnosis: Gallstone pancreatitis Post Op Diagnosis: Same, with severe necrotizing cholecystitis Surgeon: Ignacio Coles Medicinal Chemist(s): DILLON Moss Procedure: Laparoscopic cholecystectomy with intraoperative cholangiogram with intraoperative use of fluoroscopy Findings: No CBD stones Complications: None Specimen(s) removed: Gallbladder and contents to pathology Estimated blood loss: 300 ml Anesthesia: General Drains: SAMAN IVF (1400 ml) Patient to: PACU Patient Condition: Good Date/Time of Procedure: SEE SURGICAL CARE RECORD Ignacio Coles MD Jul 24, 2017 18:15
[2017-07-24] MEDS ORDERED: DO NOT ADM ANY ANTICOAGULANT DRUGS PRN (18:28)
--- NOTE | 2017-07-24 18:57 | RADRPT ---
EXAM DATE/TIME: 07/24/2017 18:23 [facility] COMPARISON: No previous studies available for comparison. INDICATIONS : Central line placement done in or. MEDICAL HISTORY : Carcinoma, bladder. Diabetes mellitus type 2. Hypertension. SURGICAL HISTORY : Total knee replacement, right. Bilat hip replacements. Bladder surgery. ENCOUNTER: Subsequent ACUITY: 3 days PAIN SCORE: 6/10 LOCATION: Bilateral chest FINDINGS: Mild bibasilar atelectasis. Probably small pleural effusions, special ON the right. No pneumothorax. Heart size within normal limits. There is a left subclavian central venous catheter with tip in the superior vena cava. CONCLUSION: 1. Left subclavian central venous catheter with tip in the superior vena cava. No pneumothorax or oth er acute complication. 2. Mild bibasilar atelectasis and small right pleural effusion. William Ngo MD on July 24, 2017 at 18:54 Board Certified Radiologist. This report was verified electronically.
[2017-07-24] MEDS: PANTOPRAZOLE SODIUM 40 MG VIAL IV PUSH SCH (19:00)
--- NOTE | 2017-07-24 19:15 | MP ---
cc: Ignacio Coles MD, Mohammad A MD DATE OF OPERATION: 07/24/2017 PROCEDURE: Laparoscopic cholecystectomy with intraoperative cholangiogram with intraoperative use of fluoroscopy. PREOPERATIVE DIAGNOSIS: Gallstone pancreatitis with elevated liver function tests. POSTOPERATIVE DIAGNOSIS: Gallstone pancreatitis with elevated liver function tests, without common duct stones. ANESTHESIA: General endotracheal. SURGEON: MD Sanket ESTIMATED BLOOD LOSS: 300 mL FLUIDS: 1400 mL crystalloid. COMPLICATIONS: None. DRAINS: None. SPECIMENS: Gallbladder and contents to pathology. PROCEDURE IN DETAIL: The patient was taken to the operating room and placed on the operating table in the supine position. After an adequate level of general endotracheal anesthesia was achieved, the abdomen was prepped and draped in the usual fashion. Timeout was confirming the correct patient, site, and procedure to be performed. Skin and subcutaneous tissue was infiltrated with local anesthetic and a supraumbilical incision was made and carried down through the fascia sharply. The peritoneal cavity was directly visualized. A 12 mm balloon trocar was inserted and the balloon inflated. The abdomen was insufflated. The patient was placed in reverse Trendelenburg position. Three 5 mm trocars were placed with the first to the right of the falciform ligament and second and third in the right subcostal region. The patient's gallbladder appeared to be fairly lateral in this individual and was tense and acutely inflamed. Inflammatory tissue was taken down from around the gallbladder, after which it was punctured and aspirated. Approximately 85 mL of dark green bile was removed, allowing for much easier grasping of the fundus of the gallbladder with graspers. This was retracted up and over the dome of the liver. The cystic duct infundibular junction and cystic artery were both circumferentially dissected. The cystic artery was doubly clipped proximally, singly clipped on the gallbladder side and divided. A single clip was placed on the gallbladder side of the cystic duct and a cystic ductotomy was made as the patient's liver function tests were becoming more elevated, especially the bilirubin. A cholangiogram catheter was brought in via separate stab incision and secured in place with a clip. Three runs were made and the common hepatic duct, common bile duct and pancreatic ducts were easily seen. On the first run, the duodenum was not visualized, but after giving Glucagon the duodenum was easily seen. No filling defects were noted within the biliary system. When this was completed, and after confirming this with the radiologist, the cholangiogram catheter was removed. The cystic duct was doubly clipped distally and divided. The gallbladder was dissected off of the liver bed with electrodissection. Venous bleeders were seen at 2 points and these were controlled with both SNoW and Evarrest clotting agent. When the gallbladder was completely removed, it was removed from the abdominal cavity by placing it into an Endo Catch device and removing via the supraumbilical port site and passing off the table. The upper abdomen was revisualized. Clotting agent that had been placed on the liver bed after obtaining near hemostasis with electrocautery allowed for complete hemostasis. A Martín-Jensen drain was brought in via the upper 5 mm trocar site and out via the lateral most 5 mm trocar site and secured to the skin with a 3-0 nylon suture. Insufflation was then discontinued and the remaining trocars removed under direct vision. The fascia was closed in the supraumbilical site with interrupted 0 Vicryl suture. The remaining local anesthetic was injected into each of the trocar sites. The skin was closed at the 3 remaining trocar sites with interrupted buried 4-0 Vicryl suture. Steri-Strips were placed on these as well as the Issa cholangiocatheter trocar site. A 4 x 4 was placed around the drain, and this was secured with tape. The patient was extubated and taken back to the recovery room in stable condition. He tolerated the procedure well. MD JOSE F Watkins/TELLO , 06:36 PM , 07:13 PM
[2017-07-24] MEDS: LACTATED RINGER'S 1000 ML INJ 1,000 ML IV SCH (22:01)
[2017-07-24] MEDS ORDERED: SUGAMMADEX SODIUM 200 MG/2 ML VIAL IV PUSH ONE (22:59)
[2017-07-25] VITALS (8 sets, daily range): BP systolic 135–149; BP diastolic 63–79; PULSE 71–95; RESP 16–23; TEMP 98–98.9; O2SAT 93–96
[2017-07-25] MEDS: LACTATED RINGER'S 1000 ML INJ 1,000 ML IV SCH ×2 (02:15→08:26)
[2017-07-25] MEDS: MORPHINE SULFATE 2 MG/ML INJ IV PRN (02:42)
[2017-07-25 05:27] LABS: HEMATOCRIT 32.3 % (39.0-51.0); MEAN CELL VOLUME 97.2 FL (80.0-100.0); MEAN CORPUSCULAR HEMOGLOBIN 33.1 PG (27.0-34.0); MEAN CORPUSCULAR HGB CONC 34.1 % (32.0-36.0); MEAN PLATELET VOLUME 8.4 FL (7.0-11.0); PLATELET COUNT 116 TH/MM3 (150-450); RED BLOOD COUNT 3.32 MIL/MM3 (4.50-5.90); RED CELL DISTRIBUTION WIDTH 14.3 % (11.6-17.2); WHITE BLOOD COUNT 7.6 TH/MM3 (4.0-11.0)
[2017-07-25 06:07] LABS: ALBUMIN 2.2 GM/DL (3.4-5.0); BICARBONATE 26.9 MEQ/L (21.0-32.0); CALCIUM 7.2 MG/DL (8.5-10.1); CREATININE 0.98 MG/DL (0.60-1.30); INDIRECT BILIRUBIN 0.9 MG/DL (0.0-0.8); TOTAL BILIRUBIN ADULT 3.9 MG/DL (0.2-1.0); TOTAL PROTEIN 5.5 GM/DL (6.4-8.2)
[2017-07-25 07:23] LABS: CALCIUM-PROTEIN CORRECTED 8.1 MG/DL (8.5-10.1)
[2017-07-25] MEDS: INSULIN ASPART SUPPLEMENTAL SCALE SQ SCH ×4 (08:00→20:40)
[2017-07-25] MEDS: SODIUM CHLORIDE 0.9% FLUSH 10 ML FLUSH IV FLUSH SCH ×2 (08:26→20:41)
--- NOTE | 2017-07-25 08:38 | HHI.PR ---
Subjective Remarks Patient complained of feeling sore at the surgical site. He is hungry. No nausea or vomiting. Objective Vitals Vital Signs Date Time Temp Pulse Resp B/P (MAP) Pulse Ox O2 Delivery O2 Flow Rate FiO2 07/25/17 08:00 73 07/25/17 07:00 93 Nasal Cannula 2.00 07/25/17 05:14 98.7 85 19 142/70 (94) 93 07/25/17 02:00 98.9 82 23 135/70 (91) 94 07/24/17 21:14 98.9 82 22 143/75 (97) 94 07/24/17 21:10 93 Nasal Cannula 2.00 07/24/17 18:59 98.5 80 17 147/75 (99) 97 07/24/17 18:45 78 18 129/59 (82) 94 Nasal Cannula 2 07/24/17 18:30 74 18 133/64 (87) 94 Nasal Cannula 2 07/24/17 18:15 84 18 136/64 (88) 93 Nasal Cannula 2 07/24/17 18:00 97.9 88 18 133/63 (86) 92 Nasal Cannula 2 07/24/17 11:39 99.4 97 20 146/81 (102) 94 07/24/17 10:01 97 I/O 07/24/17 07/24/17 07/24/17 07/25/17 07/25/17 07/25/17 07:00 15:00 23:00 07:00 15:00 23:00 Intake Total 1650 ml 1000 ml 2500 ml 1000 ml Output Total 425 ml 710 ml 1115 ml Balance 1225 ml 1000 ml 1790 ml -115 ml Intake Oral 700 ml 0 ml IV Total 950 ml 1000 ml 1100 ml 1000 ml Other 1400 ml Output Urine Total 425 ml 400 ml 700 ml Drainage Total 10 ml 415 ml Estimated Blood Loss 300 ml # Voids 4 # Bowel Movements 0 0 Result Diagram: 07/25/1741907/25/17419 Objective Remarks GENERAL: This is a well-nourished, well-developed patient, in no apparent distress. CARDIOVASCULAR: Normal rate and regular rhythm without murmurs, gallops, or rubs. RESPIRATORY: Good respiratory efforts. Breath sounds equal and clear to auscultation bilaterally. GASTROINTESTINAL: Abdomen soft, right upper quadrant drain in place with serosanguineous fluid. Periumbilical steri strips intact. Appropriately tender around the surgical site. MUSCULOSKELETAL: Bilateral upper extremity with some puffiness NEURO: Alert & Oriented x4 to person, place, time, situation. Moves all ext x4 PSYCH: Appropriate mood and affect. A/P Problem List: (1) Cholecystitis ICD Code: K81.9 - Cholecystitis, unspecified (2) Pancreatitis ICD Code: K85.90 - Acute pancreatitis without necrosis or infection, unspecified (3) Biliary obstruction ICD Code: K83.1 - Obstruction of bile duct Assessment and Plan 77-year-old male with: Pancreatitis Biliary obstruction Cholecystitis Continue as needed pain medications. Start transitioning to oral pain medication GI and surgery following. s/p ERCP which revealed scarring, duodenal ulcers, ampulla distorted. Status post laparoscopic cholecystectomy. Postop day #1. SAMAN drain in place. Will start on liquid diet for now. Further plans per Surgery Acute kidney injury- Resolved with IV hydration. Coronary artery disease History of angina Currently asymptomatic Follow clinically Plan to resume Aspirin soon if no objection from Surgery. Diabetes mellitus type 2 Follow blood sugars Insulin sliding scale Diabetic diet DVT prophylaxis SCDs Discharge Planning OK to transfer to floor today Candelario Mac MD Jul 25, 2017 08:38
[2017-07-25] MEDS: ACETAMINOPHEN/HYDROcodone 325 MG/7.5 MG TAB PO PRN ×3 (12:37→22:39)
--- NOTE | 2017-07-25 13:42 | HHI.GIFU ---
Subjective Remarks Resting in the bed Abdomen with some tympany, passing gas Afebrile Family in room Patient feeling much better ([place] Teran) Objective Vitals I&O Vital Signs Date Time Temp Pulse Resp B/P (MAP) Pulse Ox O2 Delivery O2 Flow Rate FiO2 07/25/17 12:00 98.5 95 16 141/67 (91) 96 07/25/17 09:24 95 Nasal Cannula 2.00 07/25/17 08:00 73 07/25/17 08:00 98.0 74 17 135/63 (87) 96 07/25/17 07:00 93 Nasal Cannula 2.00 07/25/17 05:14 98.7 85 19 142/70 (94) 93 07/25/17 02:00 98.9 82 23 135/70 (91) 94 07/24/17 21:14 98.9 82 22 143/75 (97) 94 07/24/17 21:10 93 Nasal Cannula 2.00 07/24/17 18:59 98.5 80 17 147/75 (99) 97 07/24/17 18:45 78 18 129/59 (82) 94 Nasal Cannula 2 07/24/17 18:30 74 18 133/64 (87) 94 Nasal Cannula 2 07/24/17 18:15 84 18 136/64 (88) 93 Nasal Cannula 2 07/24/17 18:00 97.9 88 18 133/63 (86) 92 Nasal Cannula 2 I/O 07/24/17 07/24/17 07/24/17 07/25/17 07/25/17 07/25/17 06:59 14:59 22:59 06:59 14:59 22:59 Intake Total 1650 ml 1000 ml 2500 ml 1000 ml 200 ml Output Total 425 ml 710 ml 1115 ml Balance 1225 ml 1000 ml 1790 ml -115 ml 200 ml Intake Oral 700 ml 0 ml IV Total 950 ml 1000 ml 1100 ml 1000 ml 200 ml Other 1400 ml Output Urine Total 425 ml 400 ml 700 ml Drainage Total 10 ml 415 ml Estimated Blood Loss 300 ml # Voids 4 # Bowel Movements 0 0 Laboratory Laboratory Tests Test 07/25/17 04:20 White Blood Count 7.6 Red Blood Count 3.32 Hemoglobin 11.0 Hematocrit 32.3 Mean Corpuscular Volume 97.2 Mean Corpuscular Hemoglobin 33.1 Mean Corpuscular Hemoglobin Concent 34.1 Red Cell Distribution Width 14.3 Platelet Count 116 Mean Platelet Volume 8.4 Blood Urea Nitrogen 17 Creatinine 0.98 Random Glucose 203 Total Protein 5.5 Albumin 2.2 Calcium Level 7.2 Alkaline Phosphatase 110 Aspartate Amino Transf (AST/SGOT) 204 Alanine Aminotransferase (ALT/SGPT) 220 Total Bilirubin 3.9 Direct Bilirubin 3.0 Sodium Level 140 Potassium Level 3.8 Chloride Level 104 Carbon Dioxide Level 26.9 Anion Gap 9 Estimat Glomerular Filtration Rate 74 Protein Corrected Calcium 8.1 Indirect Bilirubin 0.9 Imaging Last Impressions Cholangiogram 07/24/17 0000 Signed Impressions: Service Date/Time: Monday, July 24, 2017 15:34 - CONCLUSION: No evidence of common duct stone. Griffin Pham MD Chest X-Ray 07/24/17 0000 Signed Impressions: Service Date/Time: Monday, July 24, 2017 18:23 - CONCLUSION: 1. Left subclavian central venous catheter with tip in the superior vena cava. No pneumothorax or other acute complication. 2. Mild bibasilar atelectasis and small right pleural effusion. William Ngo MD Abdomen/Pelvis CT 07/21/17 0357 Signed Impressions: Service Date/Time: Friday, July 21, 2017 04:00 - CONCLUSION: 1. No acute abnormality. In particular, no renal or ureteral stones. 2. Colonic diverticulosis without acute inflammation. Jaylen Raphael Jr., MD ADDENDUM: Upon further review there are 2 small calcifications associated with the pancreatic head measuring 2 mm respectively. These are felt to relate to common bile duct stones. No dilatation of the pancreatic duct or common bile duct observed. There is subtle stranding of the pancreatic head suggesting acute pancreatitis. A HIDA scan could be performed to evaluate the common bile duct patency. I have spoken with Dr. Diaz. Jaylen Raphael Jr., MD Hepatobiliary Scan Nuclear Medicine 07/21/17 0000 Signed Impressions: Service Date/Time: Friday, July 21, 2017 09:35 - CONCLUSION: 1. Nonvisualization of the gallbladder. 2. There is uptake of tracer within the liver but no excretion. Differential considerations are given above. 3. Delayed imaging for more definitive assessment is warranted. Griffin Pham MD ADDENDUM: 4 hour delayed images were obtained. Again, there is no evidence for activity in the gallbladder, bile duct or bowel. Differential considerations again include complete CBD obstruction versus acute hepatitis. Patel Ann MD Cholangiopancreatography MRI 07/21/17 0000 Signed Impressions: Service Date/Time: Friday, July 21, 2017 13:53 - CONCLUSION: Gall bladder wall thickening with some pericholecystic fluid. Differential diagnosis includes acute cholecystitis. No definite evidence for choledocholithiasis. The pancreatic duct is mildly prominent. Fluid mostly around pancreatic head could be characteristic of reported history of pancreatitis. Periportal edema in the liver which can be associated with hepatitis as well. Multiple bilateral renal cysts. Soto Munguia MD Physical Exam HEENT: PERRL; normocephalic; atraumatic; CHEST: CTA CARDIAC: RRR ABDOMEN: Tympanic , round, soft; no hepatosplenomegaly; bowel sounds are present in all four quadrants. EXTREMITIES: No clubbing, cyanosis, or edema. SKIN: Normal; no rash; no acute icterus PHYSICIAN CHIEF OF PATHOLOGY: No focal deficits; alert and oriented times three. ([place] Teran FACILITY ATTENDANT) Assessment and Plan Plan Assessment: - Pancreatitis- likely biliary pancreatitis. Lipase > 30,000 on admission, rechecked today and now 6,011. Denies history of pancreatitis. Sx include abdominal pain that began suddenly on Thursday night with associated nausea and one episode of emesis. Occasional ETOH, a few times a month, denies ETOH prior to sx on Thursday. - Transaminitis- differentials include acute hepatitis via HIDA scan and MRCP T bili-5.7 AST-543 ALT-449 Alk phos-76 Denies history of liver issues HIDA --> Nonvisualization of the gallbladder. There is uptake of tracer within the liver but no excretion. MRCP --> Gallbladder wall thickening with pericholecystic fluid. No definite evidence for choledocholithiasis. Pancreatic duct is mildly prominent. Fluid mostly around pancreatic head coulc be characteristic of reported history of pancreatitis. Periportal edema in the liver which can be associated with hepatitis as well. GS following for possible cholecystectomy tomorrow 07/23/17 was going for lap eda today but this was cancelled by GS d/t LFTs not improving. his lipase did decrease today. 07/24/17 LFTs remain elevated. s/p ERCP yesterday foudn scarring, duodenal ulcers, ampulla distorted. lap eda today. 07/25/17, status post laparoscopic cholecystectomy, abdominal pain and generalized soreness improving, mild tympany, no nausea vomiting tolerate food Plan: - diet per GS - Encouraged increased activity - Monitor for any acute bleeding - Diet as tolerated heart healthy, probiotics - Monitor bowel regimen - monitor labs - GI will sign off reconsult if needed, gave her contact information for a GI to follow-up after hospitalization if needed Pt has been seen and examined by myself and Dr. Bolaños and this note is written on his behalf ([place] Teran) Physician Comments Agree with above assessment and plan. Please notify us if needed again. (Shelly Bolaños MD) [place] Teran Jul 25, 2017 13:42 Shelly Bolaños MD Jul 25, 2017 22:47
[2017-07-25] MEDS: PANTOPRAZOLE SODIUM 40 MG VIAL IV PUSH SCH (17:58)
[2017-07-25] MEDS ORDERED: FUROSEMIDE 20 MG/2 ML VIAL IV PUSH ONE (20:00)
--- NOTE | 2017-07-25 20:01 | HHI.PR ---
Subjective Subjective Notes Feels much better today; much less pain Objective Vitals/I&O Vital Signs Date Time Temp Pulse Resp B/P (MAP) Pulse Ox O2 Delivery O2 Flow Rate FiO2 07/25/17 17:02 98.4 71 18 149/79 (102) 95 07/25/17 09:24 Nasal Cannula 2.00 Labs Laboratory Tests Test 07/25/17 04:20 White Blood Count 7.6 Red Blood Count 3.32 Hemoglobin 11.0 Hematocrit 32.3 Mean Corpuscular Volume 97.2 Mean Corpuscular Hemoglobin 33.1 Mean Corpuscular Hemoglobin Concent 34.1 Red Cell Distribution Width 14.3 Platelet Count 116 Mean Platelet Volume 8.4 Blood Urea Nitrogen 17 Creatinine 0.98 Random Glucose 203 Total Protein 5.5 Albumin 2.2 Calcium Level 7.2 Alkaline Phosphatase 110 Aspartate Amino Transf (AST/SGOT) 204 Alanine Aminotransferase (ALT/SGPT) 220 Total Bilirubin 3.9 Direct Bilirubin 3.0 Sodium Level 140 Potassium Level 3.8 Chloride Level 104 Carbon Dioxide Level 26.9 Anion Gap 9 Estimat Glomerular Filtration Rate 74 Protein Corrected Calcium 8.1 Indirect Bilirubin 0.9 Lungs: Clear Abdomen: Non-tender Narrative Exam Steristrips intact SAMAN drainage serosanguineous A/P Assessment and Plan 77 year old male POD #1 lap eda with intraoperative cholangiogram with fluoroscopy Doing well Advance diet Single dose of lasix; D/C contre[place] in am Needs [facility] for drain care after discharge; likely on Thursday 07/27 No antibiotics needed Ignacio Coles MD Jul 25, 2017 20:01
[2017-07-26] VITALS: BP 133/69; PULSE 72; RESP 20; TEMP 97.7; O2SAT 92
[2017-07-26] MEDS: MORPHINE SULFATE 4 MG/ML INJ IV PUSH PRN ×2 (01:30→05:41)
[2017-07-26] MEDS: ACETAMINOPHEN/HYDROcodone 325 MG/7.5 MG TAB PO PRN ×5 (03:21→22:24)
[2017-07-26 03:50] LABS: HEMATOCRIT 32.4 % (39.0-51.0); HEMOGLOBIN 11.1 GM/DL (13.0-17.0); MEAN CELL VOLUME 96.9 FL (80.0-100.0); MEAN CORPUSCULAR HEMOGLOBIN 33.2 PG (27.0-34.0); MEAN CORPUSCULAR HGB CONC 34.3 % (32.0-36.0); MEAN PLATELET VOLUME 8.2 FL (7.0-11.0); PLATELET COUNT 131 TH/MM3 (150-450); RED BLOOD COUNT 3.34 MIL/MM3 (4.50-5.90); RED CELL DISTRIBUTION WIDTH 13.9 % (11.6-17.2); WHITE BLOOD COUNT 9.5 TH/MM3 (4.0-11.0)
[2017-07-26 04:04] LABS: ALBUMIN 2.2 GM/DL (3.4-5.0); BICARBONATE 30.6 MEQ/L (21.0-32.0); CALCIUM 7.5 MG/DL (8.5-10.1)
[2017-07-26 04:08] LABS: CREATININE 0.95 MG/DL (0.60-1.30); DIRECT BILIRUBIN ADULT 1.5 MG/DL (0.0-0.2); INDIRECT BILIRUBIN 0.7 MG/DL (0.0-0.8); TOTAL BILIRUBIN ADULT 2.2 MG/DL (0.2-1.0); TOTAL PROTEIN 5.8 GM/DL (6.4-8.2)
[2017-07-26 08:00] VITALS: BP 132/85; PULSE 94; RESP 18; TEMP 97.3; O2SAT 92
[2017-07-26] MEDS: SODIUM CHLORIDE 0.9% FLUSH 10 ML FLUSH IV FLUSH SCH ×2 (09:33→20:02)
[2017-07-26] MEDS: INSULIN ASPART SUPPLEMENTAL SCALE SQ SCH ×4 (09:33→20:16)
--- NOTE | 2017-07-26 10:30 | HHI.PR ---
Subjective Subjective Notes no nausea. burping, no flatus, pain controlled Objective Vitals/I&O Vital Signs Date Time Temp Pulse Resp B/P (MAP) Pulse Ox O2 Delivery O2 Flow Rate FiO2 07/26/17 08:00 97.3 94 18 132/85 (101) 92 07/25/17 09:24 Nasal Cannula 2.00 Labs Laboratory Tests Test 07/26/17 03:28 White Blood Count 9.5 Red Blood Count 3.34 Hemoglobin 11.1 Hematocrit 32.4 Mean Corpuscular Volume 96.9 Mean Corpuscular Hemoglobin 33.2 Mean Corpuscular Hemoglobin Concent 34.3 Red Cell Distribution Width 13.9 Platelet Count 131 Mean Platelet Volume 8.2 Blood Urea Nitrogen 16 Creatinine 0.95 Random Glucose 179 Total Protein 5.8 Albumin 2.2 Calcium Level 7.5 Alkaline Phosphatase 111 Aspartate Amino Transf (AST/SGOT) 114 Alanine Aminotransferase (ALT/SGPT) 175 Total Bilirubin 2.2 Direct Bilirubin 1.5 Sodium Level 138 Potassium Level 3.3 Chloride Level 100 Carbon Dioxide Level 30.6 Anion Gap 7 Estimat Glomerular Filtration Rate 77 Indirect Bilirubin 0.7 Abdomen: Other (mild distension, kary serosang) A/P Assessment and Plan 77 year old male POD #2 lap eda with intraoperative cholangiogram with fluoroscopy Doing well keep fulls good uop bowel regimen Needs [facility] for drain care after discharge; likely on Thursday 07/27 Nik Vilchis MD Jul 26, 2017 10:29
[2017-07-26 12:00] VITALS: BP 155/80; PULSE 83; RESP 17; TEMP 98.9; O2SAT 94
--- NOTE | 2017-07-26 15:00 | HHI.PR ---
Subjective Remarks Follow-up cholecystectomy. Patient is doing better tolerating diet. Passing gas but no BM. Discussed with general surgery Objective Vitals Vital Signs Date Time Temp Pulse Resp B/P (MAP) Pulse Ox O2 Delivery O2 Flow Rate FiO2 07/26/17 12:00 98.9 83 17 155/80 (105) 94 07/26/17 08:00 97.3 94 18 132/85 (101) 92 07/26/17 00:00 97.7 72 20 133/69 (90) 92 07/25/17 20:00 98.0 74 20 143/78 (99) 95 07/25/17 17:02 98.4 71 18 149/79 (102) 95 07/25/17 16:00 98.6 88 20 139/70 (93) 94 I/O 07/25/17 07/25/17 07/25/17 07/26/17 07/26/17 07/26/17 07:00 15:00 23:00 07:00 15:00 23:00 Intake Total 1000 ml 200 ml 1240 ml Output Total 1115 ml 2370 ml 3200 ml Balance -115 ml 200 ml -2370 ml -1960 ml Intake Oral 1240 ml IV Total 1000 ml 200 ml Output Urine Total 700 ml 1900 ml 3100 ml Drainage Total 415 ml 470 ml 100 ml # Bowel Movements 0 0 Result Diagram: 07/26/17 0328 07/26/17 0328 Imaging Last Impressions Cholangiogram 07/24/17 0000 Signed Impressions: Service Date/Time: Monday, July 24, 2017 15:34 - CONCLUSION: No evidence of common duct stone. Griffin Pham MD Chest X-Ray 07/24/17 0000 Signed Impressions: Service Date/Time: Monday, July 24, 2017 18:23 - CONCLUSION: 1. Left subclavian central venous catheter with tip in the superior vena cava. No pneumothorax or other acute complication. 2. Mild bibasilar atelectasis and small right pleural effusion. William Ngo MD Abdomen/Pelvis CT 07/21/17 0357 Signed Impressions: Service Date/Time: Friday, July 21, 2017 04:00 - CONCLUSION: 1. No acute abnormality. In particular, no renal or ureteral stones. 2. Colonic diverticulosis without acute inflammation. Jaylen Raphael Jr., MD ADDENDUM: Upon further review there are 2 small calcifications associated with the pancreatic head measuring 2 mm respectively. These are felt to relate to common bile duct stones. No dilatation of the pancreatic duct or common bile duct observed. There is subtle stranding of the pancreatic head suggesting acute pancreatitis. A HIDA scan could be performed to evaluate the common bile duct patency. I have spoken with Dr. Diaz. Jaylen Raphael Jr., MD Hepatobiliary Scan Nuclear Medicine 07/21/17 0000 Signed Impressions: Service Date/Time: Friday, July 21, 2017 09:35 - CONCLUSION: 1. Nonvisualization of the gallbladder. 2. There is uptake of tracer within the liver but no excretion. Differential considerations are given above. 3. Delayed imaging for more definitive assessment is warranted. Griffin Pham MD ADDENDUM: 4 hour delayed images were obtained. Again, there is no evidence for activity in the gallbladder, bile duct or bowel. Differential considerations again include complete CBD obstruction versus acute hepatitis. Patel Ann MD Cholangiopancreatography MRI 07/21/17 0000 Signed Impressions: Service Date/Time: Friday, July 21, 2017 13:53 - CONCLUSION: Gall bladder wall thickening with some pericholecystic fluid. Differential diagnosis includes acute cholecystitis. No definite evidence for choledocholithiasis. The pancreatic duct is mildly prominent. Fluid mostly around pancreatic head could be characteristic of reported history of pancreatitis. Periportal edema in the liver which can be associated with hepatitis as well. Multiple bilateral renal cysts. Soto Munguia MD Objective Remarks GENERAL: This is a well-nourished, well-developed patient, in no apparent distress. CARDIOVASCULAR: Normal rate and regular rhythm without murmurs, gallops, or rubs. RESPIRATORY: Good respiratory efforts. Breath sounds equal and clear to auscultation bilaterally. GASTROINTESTINAL: Abdomen soft, right upper quadrant drain in place with serosanguineous fluid. Periumbilical steri strips intact. Appropriately tender around the surgical site. MUSCULOSKELETAL: Bilateral upper extremity with some puffiness NEURO: Alert & Oriented x4 to person, place, time, situation. Moves all ext x4 PSYCH: Appropriate mood and affect. Procedures ERCP and lap eda A/P Problem List: (1) Cholecystitis ICD Code: K81.9 - Cholecystitis, unspecified (2) Pancreatitis ICD Code: K85.90 - Acute pancreatitis without necrosis or infection, unspecified (3) Biliary obstruction ICD Code: K83.1 - Obstruction of bile duct Assessment and Plan 77-year-old male with: Pancreatitis. Improving Biliary obstruction status post ERCP. Stable Cholecystitis status post laparoscopic cholecystectomy. Stable Continue as needed pain medications. Counseled regarding narcotic GI and surgery following. s/p ERCP which revealed scarring, duodenal ulcers, ampulla distorted. Status post laparoscopic cholecystectomy. Postop day #1. SAMAN drain in place. Will start on liquid diet for now. Further plans per Surgery Acute kidney injury- Resolved with IV hydration. Coronary artery disease History of angina Currently asymptomatic Follow clinically, restart beta-feliberto Discussed with general surgery restart aspirin after discharge Diabetes mellitus type 2 Hyperglycemia restart glimepiride Insulin sliding scale Diabetic diet DVT prophylaxis SCDs. Chemical prophylaxis if okay with general surgery Discharge Planning Possible discharge tomorrow Jomar Xiong MD Jul 26, 2017 15:00
[2017-07-26 16:00] VITALS: BP 141/76; PULSE 101; RESP 18; TEMP 100; O2SAT 93
[2017-07-26] MEDS: PANTOPRAZOLE SODIUM 40 MG VIAL IV PUSH SCH (18:09)
--- NOTE | 2017-07-26 18:59 | HHI.DCPOC ---
Discharge Care Plan Diagnosis: (1) Pancreatitis (2) Biliary obstruction (3) Cholecystitis Your Health Problems Are: Difficulty with ADL Exercise Tolerance Goals to Promote Your Health * To prevent worsening of your condition and complications * To maintain your health at the optimal level Directions to Meet Your Goals Take your medications as prescribed Follow your dietary instruction Follow activity as directed Keep your appointments as scheduled Take your immunizations and boosters as scheduled If your symptoms worsen call your PCP, if no PCP go to Urgent Care Center or Emergency Room Smoking is Dangerous to Your Health. Avoid second hand smoke Call the 24-hour hour crisis hotline for domestic abuse at Jomar Xiong MD Jul 26, 2017 18:59
[2017-07-26] MEDS ORDERED: POTASSIUM CHLORIDE 20 MEQ CONTROLLED RELEASE TAB PO ONE (19:00)
--- NOTE | 2017-07-26 19:00 | HHI.FF ---
Face to Face Verification Diagnosis: (1) Biliary obstruction (2) Pancreatitis (3) Cholecystitis Home Health Nursing Order: Medical education Signs/symptoms of disease process Diabetic education Medication education-adverse effect Wound care and dressing changes (Drain care) Nursing assessment with vital signs I have seen patient Choco Philip on 07/26/17. My clinical findings support the need for the requested home health care services because: Deconditioned w/ increased weakness I certify that my clinical findings support that this patient is homebound because: Unsafe to leave home unassisted Jomar Xiong MD Jul 26, 2017 19:00
[2017-07-26] MEDS ORDERED: OXYC1CAP PO (19:02)
[2017-07-26] MEDS: GLIMEPIRIDE 2 MG TAB PO SCH (19:58)
[2017-07-26 20:00] VITALS: BP 136/78; PULSE 94; RESP 18; TEMP 98.2; O2SAT 94
[2017-07-26] MEDS: METOPROLOL SUCCINATE 50 MG EXTENDED RELEASE TAB PO SCH (20:01)
[2017-07-26] MEDS: GABAPENTIN 300 MG CAP PO SCH (20:01)
[2017-07-27] VITALS: BP 131/74; PULSE 90; RESP 18; TEMP 99.5; O2SAT 94
[2017-07-27] MEDS: ACETAMINOPHEN/HYDROcodone 325 MG/7.5 MG TAB PO PRN ×3 (02:20→21:26)
[2017-07-27 08:00] VITALS: BP 134/82; PULSE 76; RESP 18; TEMP 98.6; O2SAT 96
[2017-07-27] MEDS: INSULIN ASPART SUPPLEMENTAL SCALE SQ SCH ×4 (08:00→21:27)
[2017-07-27] MEDS: SODIUM CHLORIDE 0.9% FLUSH 10 ML FLUSH IV FLUSH SCH ×2 (09:00→21:27)
[2017-07-27] MEDS: METOPROLOL SUCCINATE 50 MG EXTENDED RELEASE TAB PO SCH (09:26)
[2017-07-27] MEDS: PANTOPRAZOLE SOD 40 MG DELAYED RELEASE TAB PO SCH (09:26)
[2017-07-27] MEDS: GLIMEPIRIDE 2 MG TAB PO SCH (09:27)
--- NOTE | 2017-07-27 09:44 | HHI.PR ---
Subjective Subjective Notes Feeling better today Concerned because he Objective Vitals/I&O Vital Signs Date Time Temp Pulse Resp B/P (MAP) Pulse Ox O2 Delivery O2 Flow Rate FiO2 07/27/17 08:00 98.6 76 18 134/82 (99) 96 07/25/17 09:24 Nasal Cannula 2.00 A/P Assessment and Plan 77 year old male with GS pancreatitis -MRCP negative for choledocholithiasis but liver enzymes still remain elevated -Discussed with GI---plan for ERCP today -If liver enzymes and lipase better tomorrow can plan for lap eda tomorrow -Obtain consents -NPO after MN -Discussed with patient and and all questions were answered Charmaine Bennett/First Corrie COLLINS Jul 27, 2017 09:44
--- NOTE | 2017-07-27 10:58 | HHI.PR ---
Subjective Subjective Notes Resting in bed Concerned about why he keeps getting Ensure rather than Glucerna Objective Vitals/I&O Vital Signs Date Time Temp Pulse Resp B/P (MAP) Pulse Ox O2 Delivery O2 Flow Rate FiO2 07/27/17 08:00 98.6 76 18 134/82 (99) 96 07/25/17 09:24 Nasal Cannula 2.00 Cardiovascular: Regular Lungs: Clear Abdomen: Other (lap sites c/d/i ; mildy distended ), Post-op tenderness Extremities: No edema A/P Assessment and Plan 77 year old male with GS pancreatitis -POD3 lap eda; IOC -Advance to diabetic diet with GLUCERNA shakes only -Pain control -OOB and mobilize -IS -Likely home tomorrow with [facility] for drain care Attending Note - Dr. Coles Wounds clean and dry SAMAN drain serosanguinous; volume too high to remove before discharge The exam, history, and the medical decision-making described in the above note were completed with the assistance of the mid-level provider. I reviewed and agree with the findings presented. I attest that I had a [id number] encounter with the patient on the same day, and personally performed and documented my assessment and findings in the medical record. Charmaine Bennett/First Corrie COLLINS Jul 27, 2017 10:58 Ignacio Coles MD Jul 30, 2017 17:36
[2017-07-27] MEDS ORDERED: POLYETHYLENE GLYCOL 17 GM PKG PO ONE (11:00)
[2017-07-27] MEDS ORDERED: MAGNESIUM HYDROXIDE SUSP 30 ML CUP PO ONE (11:00)
--- NOTE | 2017-07-27 11:19 | HHI.PR ---
Subjective Remarks Follow-up cholecystectomy. He is doing okay tolerating diet. Discussed with general surgery, hold discharge awaiting return of bowel function. T-max of 100. Complains of improving cough denies shortness of breath. Objective Vitals Vital Signs Date Time Temp Pulse Resp B/P (MAP) Pulse Ox O2 Delivery O2 Flow Rate FiO2 07/27/17 08:00 98.6 76 18 134/82 (99) 96 07/27/17 00:00 99.5 90 18 131/74 (93) 94 07/26/17 20:00 98.2 94 18 136/78 (97) 94 07/26/17 16:00 100.0 101 18 141/76 (97) 93 07/26/17 12:00 98.9 83 17 155/80 (105) 94 I/O 07/26/17 07/26/17 07/26/17 07/27/17 07/27/17 07/27/17 07:00 15:00 23:00 07:00 15:00 23:00 Intake Total 1240 ml 1900 ml 480 ml Output Total 3200 ml 1110 ml 2940 ml Balance -1960 ml 790 ml -2460 ml Intake Oral 1240 ml 1900 ml 480 ml Output Urine Total 3100 ml 900 ml 2850 ml Drainage Total 100 ml 210 ml 90 ml # Bowel Movements 0 0 Result Diagram: 07/26/17 0328 07/26/17 0328 Imaging Last Impressions Chest X-Ray 07/27/17 0000 Signed Impressions: Service Date/Time: Thursday, July 27, 2017 11:25 - CONCLUSION: 1. Improved trace right pleural effusion with associated minimal right lower lung zone airspace disease. Patel Ann MD Cholangiogram 07/24/17 0000 Signed Impressions: Service Date/Time: Monday, July 24, 2017 15:34 - CONCLUSION: No evidence of common duct stone. Griffin Pham MD Abdomen/Pelvis CT 07/21/17 0357 Signed Impressions: Service Date/Time: Friday, July 21, 2017 04:00 - CONCLUSION: 1. No acute abnormality. In particular, no renal or ureteral stones. 2. Colonic diverticulosis without acute inflammation. Jaylen Raphael Jr., MD ADDENDUM: Upon further review there are 2 small calcifications associated with the pancreatic head measuring 2 mm respectively. These are felt to relate to common bile duct stones. No dilatation of the pancreatic duct or common bile duct observed. There is subtle stranding of the pancreatic head suggesting acute pancreatitis. A HIDA scan could be performed to evaluate the common bile duct patency. I have spoken with Dr. Diaz. Jaylen Raphael Jr., MD Hepatobiliary Scan Nuclear Medicine 07/21/17 Signed Impressions: Service Date/Time: Friday, July 21, 2017 09:35 - CONCLUSION: 1. Nonvisualization of the gallbladder. 2. There is uptake of tracer within the liver but no excretion. Differential considerations are given above. 3. Delayed imaging for more definitive assessment is warranted. Griffin Pham MD ADDENDUM: 4 hour delayed images were obtained. Again, there is no evidence for activity in the gallbladder, bile duct or bowel. Differential considerations again include complete CBD obstruction versus acute hepatitis. Patel Ann MD Cholangiopancreatography MRI 07/21/17 Signed Impressions: Service Date/Time: Friday, July 21, 2017 13:53 - CONCLUSION: Gall bladder wall thickening with some pericholecystic fluid. Differential diagnosis includes acute cholecystitis. No definite evidence for choledocholithiasis. The pancreatic duct is mildly prominent. Fluid mostly around pancreatic head could be characteristic of reported history of pancreatitis. Periportal edema in the liver which can be associated with hepatitis as well. Multiple bilateral renal cysts. Soto Munguia MD Objective Remarks GENERAL: This is a well-nourished, well-developed patient, in no apparent distress. CARDIOVASCULAR: Normal rate and regular rhythm without murmurs, gallops, or rubs. RESPIRATORY: Good respiratory efforts. Breath sounds equal and clear to auscultation bilaterally. GASTROINTESTINAL: Abdomen soft, right upper quadrant drain in place with serosanguineous fluid. Periumbilical steri strips intact. Appropriately tender around the surgical site. MUSCULOSKELETAL: Bilateral upper extremity with some puffiness NEURO: Alert & Oriented x4 to person, place, time, situation. Moves all ext x4 PSYCH: Appropriate mood and affect. Procedures ERCP and lap eda A/P Problem List: (1) Cholecystitis ICD Code: K81.9 - Cholecystitis, unspecified (2) Pancreatitis ICD Code: K85.90 - Acute pancreatitis without necrosis or infection, unspecified (3) Biliary obstruction ICD Code: K83.1 - Obstruction of bile duct Assessment and Plan 77-year-old male with: Pancreatitis. Improving Biliary obstruction status post ERCP. Stable Cholecystitis status post laparoscopic cholecystectomy. Stable awaiting return of bowel function Transaminitis. Improving continue as needed pain medications. Counseled regarding narcotic Continue to hold Lipitor and metformin secondary to transaminitis GI and surgery following. s/p ERCP which revealed scarring, duodenal ulcers, ampulla distorted. Status post laparoscopic cholecystectomy. SAMAN drain in place. Advance diet to regular further plans per Surgery Acute kidney injury- Resolved with IV hydration. Coronary artery disease History of angina Currently asymptomatic Follow clinically, restart beta-feliberto Discussed with general surgery restart aspirin after discharge Diabetes mellitus type 2 Hyperglycemia restart glimepiride Insulin sliding scale Diabetic diet Fever likely secondary to atelectasis. Improving cough. No leukocytosis. Chest x-ray with improving right pleural effusion and airspace disease. Incentive spirometry. Will monitor DVT prophylaxis SCDs. Chemical prophylaxis if okay with general surgery Discharge Planning Possible discharge tomorrow Jomar Xiong MD Jul 27, 2017 11:19
[2017-07-27 11:23] LABS: AUTOMATED NEUTROPHIL # 6.5 TH/MM3 (1.8-7.7); BASOPHIL % 0.1 % (0.0-2.0); EOSINOPHIL # 0.1 TH/MM3 (0-0.4); EOSINOPHIL % 1.6 % (0.0-4.0); HEMOGLOBIN 11.5 GM/DL (13.0-17.0); LYMPH % 14.8 % (9.0-44.0); LYMPHOCYTE # 1.3 TH/MM3 (1.0-4.8); MEAN CELL VOLUME 96.9 FL (80.0-100.0); MEAN CORPUSCULAR HEMOGLOBIN 32.8 PG (27.0-34.0); MEAN CORPUSCULAR HGB CONC 33.9 % (32.0-36.0); MEAN PLATELET VOLUME 8.4 FL (7.0-11.0); MONO % 9.1 % (0.0-8.0); MONOCYTE # 0.8 TH/MM3 (0-0.9); NEUT % 74.4 % (16.0-70.0); PLATELET COUNT 147 TH/MM3 (150-450); RED CELL DISTRIBUTION WIDTH 14.5 % (11.6-17.2); WHITE BLOOD COUNT 8.7 TH/MM3 (4.0-11.0)
--- NOTE | 2017-07-27 11:47 | RADRPT ---
EXAM DATE/TIME: 07/27/2017 11:25 [facility] COMPARISON: CHEST SINGLE AP, July 24, 2017, 18:23. INDICATIONS : Evaluate for pneumonia. MEDICAL HISTORY : Carcinoma, bladder. Diabetes mellitus type 2. Hypertension. SURGICAL HISTORY : Total knee replacement, right. Bilat hip replacements. Bladder surgery ENCOUNTER: Subsequent ACUITY: 4 - 6 days PAIN SCORE: 0/10 LOCATION: Bilateral chest FINDINGS: Minimal airspace disease in trace effusion in the right lower lobe improved from prior exam. Cardiome diastinal contours are within normal limits. Bony thorax is intact. CONCLUSION: 1. Improved trace right pleural effusion with associated minimal right lower lung zone airspace disea se. Patel Ann MD on July 27, 2017 at 11:44 Board Certified Radiologist. This report was verified electronically.
[2017-07-27 12:00] VITALS: BP 136/71; PULSE 72; RESP 17; TEMP 98.9; O2SAT 96
[2017-07-27 12:22] LABS: ALBUMIN 2.4 GM/DL (3.4-5.0); ALT (GPT) 124 U/L (12-78); AST (GOT) 64 U/L (15-37); BICARBONATE 29.7 MEQ/L (21.0-32.0); BLOOD UREA NITROGEN 14 MG/DL (7-18); CALCIUM 8.5 MG/DL (8.5-10.1); CHLORIDE 96 MEQ/L (98-107); CREATININE 1.01 MG/DL (0.60-1.30); GLOMERULAR FILTRATION RATE 72 ML/MIN (>89); GLUCOSE,RANDOM 249 MG/DL (74-106); SODIUM (NA) 133 MEQ/L (136-145)
[2017-07-27 12:27] LABS: ALKALINE PHOSPHATASE 124 U/L (45-117); TOTAL PROTEIN 6.3 GM/DL (6.4-8.2)
[2017-07-27 15:00] VITALS: BP 139/73; PULSE 80; RESP 17; TEMP 97.9; O2SAT 93
[2017-07-27 20:00] VITALS: BP 137/71; PULSE 82; RESP 17; TEMP 99.2; O2SAT 96
[2017-07-27] MEDS: GABAPENTIN 300 MG CAP PO SCH (21:27)
[2017-07-28] VITALS: BP 124/70; PULSE 78; RESP 17; TEMP 98.1; O2SAT 97
[2017-07-28 08:00] VITALS: BP 119/56; PULSE 83; RESP 20; TEMP 98.2; O2SAT 95
[2017-07-28] MEDS: GLIMEPIRIDE 2 MG TAB PO SCH (08:28)
[2017-07-28] MEDS: METOPROLOL SUCCINATE 50 MG EXTENDED RELEASE TAB PO SCH (08:28)
[2017-07-28] MEDS: INSULIN ASPART SUPPLEMENTAL SCALE SQ SCH ×2 (08:28→12:00)
[2017-07-28] MEDS: PANTOPRAZOLE SOD 40 MG DELAYED RELEASE TAB PO SCH (08:28)
[2017-07-28] MEDS: SODIUM CHLORIDE 0.9% FLUSH 10 ML FLUSH IV FLUSH SCH (08:29)
--- NOTE | 2017-07-28 11:51 | HHI.PR ---
Subjective Subjective Notes Up to chair Feeling better Pain controlled Objective Vitals/I&O Vital Signs Date Time Temp Pulse Resp B/P (MAP) Pulse Ox O2 Delivery O2 Flow Rate FiO2 07/28/17 08:00 98.2 83 20 119/56 (77) 95 07/27/17 21:25 21 07/25/17 09:24 Nasal Cannula 2.00 Cardiovascular: Regular Lungs: Clear Abdomen: Other (lap sites c/d/i; SAMAN drain in place with SS drainage ) Extremities: No edema A/P Assessment and Plan 77 year old male with GS pancreatitis -POD4 lap eda; IOC -Tolerating diabetic diet -Pain control -OOB and mobilize -IS -GS clear for DC -Follow up with Dr. Coles July 30 at 9:20AM Attending Note - Dr. Coles Feels well; abdomen benign The exam, history, and the medical decision-making described in the above note were completed with the assistance of the mid-level provider. I reviewed and agree with the findings presented. I attest that I had a [id number] encounter with the patient on the same day, and personally performed and documented my assessment and findings in the medical record. Charmaine BennettP/Pharmacy Technician Program Director DIESEL TECHNICIAN Jul 28, 2017 11:51 Ignacio Coles MD Jul 30, 2017 17:42
[2017-07-28 12:00] VITALS: BP 116/57; PULSE 82; RESP 19; TEMP 96.9; O2SAT 95
--- NOTE | 2017-07-28 13:41 | HHI.DS ---
Discharge Summary Admission Date Jul 21, 2017 at 05:16 Discharge Date: Jul 28, 2017 Admitting Diagnosis Gallstone pancreatitis (1) Cholecystitis ICD Code: K81.9 - Cholecystitis, unspecified Diagnosis: Principal (2) Pancreatitis ICD Code: K85.90 - Acute pancreatitis without necrosis or infection, unspecified Diagnosis: Principal (3) Biliary obstruction ICD Code: K83.1 - Obstruction of bile duct Diagnosis: Principal Procedures ERCP and lap eda Brief History - From Admission Mr. Philip is a 77-year-old male. He came in secondary to abdominal pain. He says he abdominal pain was severe and associated with nausea. The pain started yesterday after having barbecue and chips for dinner. He has no prior history of known cholelithiasis. He still has his natural gallbladder and appendix. Baseline medical conditions are diabetes and coronary artery disease. Workup in the emergency department shows pancreatitis. Further workup shows evidence of biliary obstruction and possible cholecystitis. His pancreatitis may be secondary to a pancreatic obstruction. No fevers or vomiting. Leukocytosis is present but no signs of sepsis. CBC/BMP: 07/27/17 1056 07/27/17 1056 Significant Findings Laboratory Tests Test 07/26/17 03:28 07/27/17 10:56 Red Blood Count 3.34 MIL/MM3 (4.50-5.90) 3.50 MIL/MM3 (4.50-5.90) Hemoglobin 11.1 GM/DL (13.0-17.0) 11.5 GM/DL (13.0-17.0) Hematocrit 32.4 % (39.0-51.0) 34.0 % (39.0-51.0) Platelet Count 131 TH/MM3 (150-450) 147 TH/MM3 (150-450) Random Glucose 179 MG/DL (74-106) 249 MG/DL (74-106) Total Protein 5.8 GM/DL (6.4-8.2) 6.3 GM/DL (6.4-8.2) Albumin 2.2 GM/DL (3.4-5.0) 2.4 GM/DL (3.4-5.0) Calcium Level 7.5 MG/DL (8.5-10.1) Aspartate Amino Transf (AST/SGOT) 114 U/L (15-37) 64 U/L (15-37) Alanine Aminotransferase (ALT/SGPT) 175 U/L (12-78) 124 U/L (12-78) Total Bilirubin 2.2 MG/DL (0.2-1.0) 2.0 MG/DL (0.2-1.0) Direct Bilirubin 1.5 MG/DL (0.0-0.2) Potassium Level 3.3 MEQ/L (3.5-5.1) Estimat Glomerular Filtration Rate 77 ML/MIN (>89) 72 ML/MIN (>89) Neutrophils (%) (Auto) 74.4 % (16.0-70.0) Monocytes (%) (Auto) 9.1 % (0.0-8.0) Alkaline Phosphatase 124 U/L (45-117) Sodium Level 133 MEQ/L (136-145) Chloride Level 96 MEQ/L (98-107) Imaging Last Impressions Chest X-Ray 07/27/17 0000 Signed Impressions: Service Date/Time: Thursday, July 27, 2017 11:25 - CONCLUSION: 1. Improved trace right pleural effusion with associated minimal right lower lung zone airspace disease. Patel Ann MD Cholangiogram 07/24/17 0000 Signed Impressions: Service Date/Time: Monday, July 24, 2017 15:34 - CONCLUSION: No evidence of common duct stone. Griffin Pham MD Abdomen/Pelvis CT 07/21/17 0357 Signed Impressions: Service Date/Time: Friday, July 21, 2017 04:00 - CONCLUSION: 1. No acute abnormality. In particular, no renal or ureteral stones. 2. Colonic diverticulosis without acute inflammation. Jaylen Raphael Jr., MD ADDENDUM: Upon further review there are 2 small calcifications associated with the pancreatic head measuring 2 mm respectively. These are felt to relate to common bile duct stones. No dilatation of the pancreatic duct or common bile duct observed. There is subtle stranding of the pancreatic head suggesting acute pancreatitis. A HIDA scan could be performed to evaluate the common bile duct patency. I have spoken with Dr. Diaz. Jaylen Raphael Jr., MD Hepatobiliary Scan Nuclear Medicine 07/21/17 0000 Signed Impressions: Service Date/Time: Friday, July 21, 2017 09:35 - CONCLUSION: 1. Nonvisualization of the gallbladder. 2. There is uptake of tracer within the liver but no excretion. Differential considerations are given above. 3. Delayed imaging for more definitive assessment is warranted. Griffin Pham MD ADDENDUM: 4 hour delayed images were obtained. Again, there is no evidence for activity in the gallbladder, bile duct or bowel. Differential considerations again include complete CBD obstruction versus acute hepatitis. Patel Ann MD Cholangiopancreatography MRI 07/21/17 0000 Signed Impressions: Service Date/Time: Friday, July 21, 2017 13:53 - CONCLUSION: Gall bladder wall thickening with some pericholecystic fluid. Differential diagnosis includes acute cholecystitis. No definite evidence for choledocholithiasis. The pancreatic duct is mildly prominent. Fluid mostly around pancreatic head could be characteristic of reported history of pancreatitis. Periportal edema in the liver which can be associated with hepatitis as well. Multiple bilateral renal cysts. Soto Munguia MD PE at Discharge GENERAL: This is a well-nourished, well-developed patient, in no apparent distress. CARDIOVASCULAR: Normal rate and regular rhythm without murmurs, gallops, or rubs. RESPIRATORY: Good respiratory efforts. Breath sounds equal and clear to auscultation bilaterally. GASTROINTESTINAL: Abdomen soft, right upper quadrant drain in place with serosanguineous fluid. Periumbilical steri strips intact. Appropriately tender around the surgical site. MUSCULOSKELETAL: Bilateral upper extremity with some puffiness NEURO: Alert & Oriented x4 to person, place, time, situation. Moves all ext x4 PSYCH: Appropriate mood and affect. Hospital Course 77-year-old male with: Pancreatitis. Improving Biliary obstruction status post ERCP. Stable Cholecystitis status post laparoscopic cholecystectomy. Stable patient had a bowel movement this morning. Tolerating diet Transaminitis. Improving continue as needed pain medications. Counseled regarding narcotic Continue to hold Lipitor and metformin secondary to transaminitis GI and surgery following. s/p ERCP which revealed scarring, duodenal ulcers, ampulla distorted. Status post laparoscopic cholecystectomy. SAMAN drain in place, discharge with home care visiting nurse. Advance diet to regular Acute kidney injury- Resolved with IV hydration. Coronary artery disease History of angina Currently asymptomatic Follow clinically, restart beta-feliberto Discussed with general surgery restart aspirin after discharge Diabetes mellitus type 2 Hyperglycemia restart glimepiride Insulin sliding scale Diabetic diet Fever likely secondary to atelectasis. Improving cough. No leukocytosis. Chest x-ray with improving right pleural effusion and airspace disease. Incentive spirometry. Will monitor. Repeat chest x-ray in 6 weeks to see PCP in 1 week or earlier if patient develops recurrent fever, worsening cough and shortness of breath DVT prophylaxis SCDs. Chemical prophylaxis if okay with general surgery Pt Condition on Discharge: Stable Discharge Disposition: Disch w/ Home Health Serv Discharge Time: > 30 minutes Discharge Instructions DIET: Follow Instructions for: Heart Healthy Diet, Diabetic Diet Activities you can perform: Regular-No Restrictions Activities to Avoid: Driving Follow up Referrals: Gastroenterology - 1 Week with Clem Lopez MD PCP Follow-up - 1 [facility] with [facility] Surgical - 08/03/17 with Ignacio Coles MD Appt set for July 30 at 9:20AM New Orders: X-RAY CHEST PA & LAT - 6 Weeks New Medications: Oxycodone (Oxycodone) 5 Mg Cap 5 MG PO Q6H PRN for PAIN, #28 CAP 0 Refills Continued Medications: Ascorbic Acid (Vitamin C) 250 Mg Tab 1200 MG PO DAILY for Nutritional Supplement, TAB 0 Refills Aspirin (Aspirin Low Dose) 81 Mg Chew 81 MG CHEW DAILY, TAB 0 Refills Cholecalciferol (Vitamin D-1000) 1,000 Unit Tab 2000 UNITS PO DAILY for Nutritional Supplement, #1 BOTTLE 0 Refills Gabapentin (Gabapentin) 300 Mg Cap 300 MG PO HS, #30 CAP 0 Refills Glimepiride (Glimepiride) 2 Mg Tab 2 MG PO DAILYAC for Blood Sugar Management, #30 TAB 0 Refills Take with breakfast or first main meal Glimepiride (Glimepiride) 4 Mg Tab 4 MG PO AT 1PM for Blood Sugar Management, #30 TAB 0 Refills Take with breakfast or first main meal Insulin Human Regular Inj (Novolin R Inj) 1,000 Unit/10 Ml Vial 10 UNITS SQ PRN for BG>160, #10 ML 0 Refills Metoprolol Succinate ER 24 HR (Toprol XL) 50 Mg Tab 50 MG PO DAILY, #30 TAB 0 Refills [place]-3 Fatty Acids (Fish Oil 1200 mg) 360 Mg-1,200 Mg Cap 1 CAP PO DAILY Discontinued Medications: Tramadol (Tramadol) 50 Mg Tab 50 MG PO Q8H PRN for PAIN, TAB 0 Refills Jomar Xiong MD Jul 28, 2017 13:41
== END 2017-07-28 13:39 | disposition home health service (06) | DRG 417 ==
LOC: PHED 02:05 → PHEDA 05:16 → N05B 18:18 → N03B 07-24 14:41 → N07B 07-24 16:05 → N03B 07-24 17:02 → N07A 07-25 16:36
PROVIDERS: ADMIT Internal Medicine; ATTEND Internal Medicine
PROC: 0FJB8ZZ Inspection of Hepatobiliary Duct, Via Natural or Artificial Opening Endoscopic (ICD-10-PCS; 2017-07-23)
PROC: BF101ZZ Fluoroscopy of Bile Ducts using Low Osmolar Contrast (ICD-10-PCS; 2017-07-23)
PROC: BF111ZZ Fluoroscopy of Biliary and Pancreatic Ducts using Low Osmolar Contrast (ICD-10-PCS; 2017-07-24)
PROC: 0FT44ZZ Resection of Gallbladder, Percutaneous Endoscopic Approach (ICD-10-PCS; principal; 2017-07-24 15:15)
DX: K81.0 Acute cholecystitis (principal); K85.10 Biliary acute pancreatitis without necrosis or infection; N17.9 Acute kidney failure, unspecified; J90 Pleural effusion, not elsewhere classified; E11.65 Type 2 diabetes mellitus with hyperglycemia; K83.1 Obstruction of bile duct; J98.11 Atelectasis; I25.10 Atherosclerotic heart disease of native coronary artery without angina pectoris; E78.5 Hyperlipidemia, unspecified; R74.0 Nonspecific elevation of levels of transaminase and lactic acid dehydrogenase [LDH]; K26.9 Duodenal ulcer, unspecified as acute or chronic, without hemorrhage or perforation; Z96.643 Presence of artificial hip joint, bilateral; Z96.651 Presence of right artificial knee joint; Z79.4 Long term (current) use of insulin; Z85.46 Personal history of malignant neoplasm of prostate; Z85.51 Personal history of malignant neoplasm of bladder; Z95.5 Presence of coronary angioplasty implant and graft
CPT/HCPCS: 71045; 74176; 74181; 74300; 76000; 76377; 78226; 80048; 80053; 80074; 80076; 81001; 82948; 83690; 83735; 84155; 85025; 85027; 88304; 93005; 94150; 96361; 96374; 96375; 96376; A9537; C1769; C9113; J0131; J0330; J0690; J1100; J1815; J1940; J2270; J2370; J2405; J3010; J7030; J7120; Q9967

== ENCOUNTER 2017-07-31 09:26 | Emergency (ER) | payer MEDICARE ==
[~2017-07-31] VITALS: Ht 177.8 cm; Wt 104.0 kg
[~2017-07-31 09:26] MED LIST changes: +AMLO5 PO; +ASPI81CH6 CHEW; +DIOV80TA4 PO; -EC-N375T3; +FISH1200 PO; +GABA300C5 PO; +GLIM2TAB PO; +GLIM4TAB PO; +LIPI20TA PO; -LOTR5CAP2; +METF500T PO; -NOVOLOGMXP; +NOVORP2 SQ; +OXYC1CAP PO; -PROP65; -TOPR50TA; +TOPR50TA PO; +VITA1000 PO; +VITA250T3 PO; -VYTO10TA35
[2017-07-31 09:29] VITALS: BP 146/72; PULSE 84; RESP 16; TEMP 98; O2SAT 98
[2017-07-31] MEDS ORDERED: NOVOLOGP2 SQ (09:48)
[2017-07-31] MEDS ORDERED: TRAM50TA PO (09:48)
[2017-07-31] MEDS ORDERED: ASPI81CH6 CHEW (09:48)
[2017-07-31] MEDS ORDERED: SODIUM CHLORIDE 0.9% FLUSH 10 ML FLUSH IVF PRN (10:15)
[2017-07-31 10:20] VITALS: O2SAT 98
[2017-07-31 10:25] LABS: AUTOMATED NEUTROPHIL # 6.7 TH/MM3 (1.8-7.7); BASOPHIL % 0.5 % (0.0-2.0); EOSINOPHIL # 0.1 TH/MM3 (0-0.4); EOSINOPHIL % 1.2 % (0.0-4.0); HEMATOCRIT 32.5 % (39.0-51.0); HEMOGLOBIN 11.2 GM/DL (13.0-17.0); LYMPH % 14.4 % (9.0-44.0); LYMPHOCYTE # 1.2 TH/MM3 (1.0-4.8); MEAN CELL VOLUME 96.2 FL (80.0-100.0); MEAN CORPUSCULAR HGB CONC 34.3 % (32.0-36.0); MEAN PLATELET VOLUME 8.3 FL (7.0-11.0); MONO % 5.6 % (0.0-8.0); MONOCYTE # 0.5 TH/MM3 (0-0.9); NEUT % 78.3 % (16.0-70.0); PLATELET COUNT 271 TH/MM3 (150-450); RED BLOOD COUNT 3.38 MIL/MM3 (4.50-5.90); RED CELL DISTRIBUTION WIDTH 14.7 % (11.6-17.2); WHITE BLOOD COUNT 8.5 TH/MM3 (4.0-11.0)
[2017-07-31 10:33] LABS: CHLORIDE 99 MEQ/L (98-107); SODIUM (NA) 136 MEQ/L (136-145)
--- NOTE | 2017-07-31 10:34 | PD ---
HPI Chief Complaint: Edema Time Seen by Provider: 10:30 Travel History International Travel<30 days: No Contact w/Intl Traveler<30days: No Traveled to known affect area: No History of Present Illness HPI 77-year-old male patient with history of CAD status post CABG, hypertension, multiple previous orthopedic surgeries, had a recent gallbladder surgery 10 days ago, here because of several days of leg swelling, some shortness of breath according to his . He has been coughing he states since his surgery. He denies any fevers, chest pains, or other symptoms. They deny any previous history of CHF or leg swelling. Patient denies any orthopnea. Modifying Factors: None Associated Signs & Symptoms: Coughing, shortness of breath, bilateral leg swelling Risk Factors: Surgery 10 days ago for gallbladder PFSH Past Medical History Arthritis: Yes Cancer: Yes (bladder) Cardiac Catheterization: Yes Cardiovascular Problems: Yes (DVT right leg s/p sx) High Cholesterol: Yes Chest Pain: Yes Diabetes: Yes Patient Takes Glucophage: Yes Diminished Hearing: Yes Gastrointestinal Disorders: Yes (GI Bleed 2004) Genetic Disorder: No Hypertension: Yes Immune Disorder: No Musculoskeletal: Yes Neurologic: No Respiratory: No Tetanus Vaccination: > 5 Years Influenza Vaccination: No Past Surgical History Cardiac Surgery: Yes (5 stents, fem pop L leg) Cholecystectomy: Yes Coronary Stent: Yes (3 STENT RIGHT CA) Eye Surgery: Yes (BL cataracts) Genitourinary Surgery: Yes (Bladder Cx, TURP) Social History Alcohol Use: Yes (Occ.) Tobacco Use: No Substance Use: No Allergies-Medications (Allergen,Severity, Reaction): Coded Allergies: No Known Allergies (Verified Allergy, Unknown, 07/31/17) Reported Meds & Prescriptions Reported Meds & Active Scripts Active Reported Aspirin Low Dose (Aspirin) 81 Mg Chew 81 Mg CHEW DAILY Novolog Inj (Insulin Aspart) 1,000 Unit/10 Ml Vial 0 SQ DIRECTED Sliding Scale as directed. Tramadol (Tramadol HCl) 50 Mg Tab 50 Mg PO Q8H PRN Fish Oil 1200 mg ([place]-3 Fatty Acids) 360 Mg-1,200 Mg Cap 1 Cap PO DAILY Vitamin D-1000 (Cholecalciferol) 1,000 Unit Tab 2,000 Units PO DAILY Vitamin C (Ascorbic Acid) 250 Mg Tab 1,200 Mg PO DAILY Gabapentin 300 Mg Cap 400 Mg PO HS Norvasc (Amlodipine Besylate) 5 Mg Tab 5 Mg PO DAILY Lipitor (Atorvastatin Calcium) 20 Mg Tab 20 Mg PO HS Metformin (Metformin HCl) 500 Mg Tab 500 Mg PO BID With a meal Toprol XL (Metoprolol Succinate) 50 Mg Tab 25 Mg PO DAILY Glimepiride 4 Mg Tab 4 Mg PO DAILY Take with breakfast or first main meal Diovan (Valsartan) 80 Mg Tab 80 Mg PO DAILY Review of Systems Except as stated in HPI: all other systems reviewed are Neg Physical Exam Narrative GENERAL: Well-developed elderly white male patient currently in mild distress. Awake and oriented 3. SKIN: Focused skin assessment warm/dry. HEAD: Atraumatic. Normocephalic. EYES: Pupils equal and round. No scleral icterus. No injection or drainage. ENT: No nasal bleeding or discharge. Mucous membranes pink and moist. NECK: Trachea midline. No JVD. CARDIOVASCULAR: Regular rate and rhythm. No murmur appreciated. RESPIRATORY: No accessory muscle use. Intermittent wheezing throughout with bibasilar crackles. Breath sounds equal bilaterally. GASTROINTESTINAL: Abdomen soft, non-tender, nondistended. Hepatic and splenic margins not palpable. MUSCULOSKELETAL: No obvious deformities. No clubbing. No cyanosis. Bilateral pitting edema of the legs. Nontender to palpation of the calf. NEUROLOGICAL: Awake and alert. No obvious cranial nerve deficits. Motor grossly within normal limits. Normal speech. PSYCHIATRIC: Appropriate mood and affect; insight and judgment normal. Data Data Last Documented VS Vital Signs Date Time Temp Pulse Resp B/P (MAP) Pulse Ox O2 Delivery O2 Flow Rate FiO2 07/31/17 11:28 85 20 167/68 (101) 98 Nasal Cannula 2.00 07/31/17 09:29 98.0 Orders Orders Complete Blood Count With Diff (07/31/17 10:12) Comprehensive Metabolic Panel (07/31/17 10:12) B-Type Natriuretic Peptide (07/31/17 10:12) Act Partial Throm Time (Ptt) (07/31/17 10:12) Prothrombin Time / Inr (Pt) (07/31/17 10:12) Troponin I (07/31/17 10:12) Iv Access Insert/Monitor (07/31/17 10:12) Ecg Monitoring (07/31/17 10:12) Oximetry (07/31/17 10:12) Oxygen Administration (07/31/17 10:12) Chest, Single Ap (07/31/17 10:12) Sodium Chloride 0.9% Flush (Ns Flush) (07/31/17 10:15) Us Leg Venous Doppler Bilat (07/31/17 10:30) Furosemide Inj (Lasix Inj) (07/31/17 12:15) Labs Laboratory Tests Test 07/31/17 10:15 White Blood Count 8.5 TH/MM3 Red Blood Count 3.38 MIL/MM3 Hemoglobin 11.2 GM/DL Hematocrit 32.5 % Mean Corpuscular Volume 96.2 FL Mean Corpuscular Hemoglobin 33.0 PG Mean Corpuscular Hemoglobin Concent 34.3 % Red Cell Distribution Width 14.7 % Platelet Count 271 TH/MM3 Mean Platelet Volume 8.3 FL Neutrophils (%) (Auto) 78.3 % Lymphocytes (%) (Auto) 14.4 % Monocytes (%) (Auto) 5.6 % Eosinophils (%) (Auto) 1.2 % Basophils (%) (Auto) 0.5 % Neutrophils # (Auto) 6.7 TH/MM3 Lymphocytes # (Auto) 1.2 TH/MM3 Monocytes # (Auto) 0.5 TH/MM3 Eosinophils # (Auto) 0.1 TH/MM3 Basophils # (Auto) 0.0 TH/MM3 CBC Comment DIFF FINAL Differential Comment Prothrombin Time 10.6 SEC Prothromb Time International Ratio 1.0 RATIO Activated Partial Thromboplast Time 25.4 SEC Blood Urea Nitrogen 8 MG/DL Creatinine 1.00 MG/DL Random Glucose 257 MG/DL Total Protein 6.9 GM/DL Albumin 2.4 GM/DL Calcium Level 8.3 MG/DL Alkaline Phosphatase 158 U/L Aspartate Amino Transf (AST/SGOT) 60 U/L Alanine Aminotransferase (ALT/SGPT) 90 U/L Total Bilirubin 1.3 MG/DL Sodium Level 136 MEQ/L Potassium Level 4.0 MEQ/L Chloride Level 99 MEQ/L Carbon Dioxide Level 31.9 MEQ/L Anion Gap 5 MEQ/L Estimat Glomerular Filtration Rate 72 ML/MIN Troponin I LESS THAN 0.02 NG/ML B-Type Natriuretic Peptide 55 PG/ML MDM Medical Decision Making Medical Screen Exam Complete: Yes Emergency Medical Condition: Yes Medical Record Reviewed: Yes Interpretation(s) Laboratory Tests Test 07/31/17 10:15 Red Blood Count 3.38 MIL/MM3 (4.50-5.90) Hemoglobin 11.2 GM/DL (13.0-17.0) Hematocrit 32.5 % (39.0-51.0) Neutrophils (%) (Auto) 78.3 % (16.0-70.0) Random Glucose 257 MG/DL (74-106) Albumin 2.4 GM/DL (3.4-5.0) Calcium Level 8.3 MG/DL (8.5-10.1) Alkaline Phosphatase 158 U/L (45-117) Aspartate Amino Transf (AST/SGOT) 60 U/L (15-37) Alanine Aminotransferase (ALT/SGPT) 90 U/L (12-78) Total Bilirubin 1.3 MG/DL (0.2-1.0) Estimat Glomerular Filtration Rate 72 ML/MIN (>89) Troponin I LESS THAN 0.02 NG/ML Last 24 hours Impressions Chest X-Ray 07/31/17 1012 Signed Impressions: Service Date/Time: Monday, July 31, 2017 10:35 - CONCLUSION: Clear lungs. No effusion. Jaylen Raphael Jr., MD Differential Diagnosis Leg swelling, coughing, shortness of breath: CHF versus DVT/PE versus pneumonia Narrative Course Ultrasound shows no signs of DVT. Chest x-ray is fairly unremarkable. BNP is normal. Troponins are negative. At this point, I suspect that some of this may be dependent edema although mild CHF cannot be completely ruled out. Patient was given Lasix in the ER. Vital signs are stable. I have talked to the patient and regarding observation admission versus close outpatient follow-up and at this point, patient and state that they would rather go home. He has been scheduled to see GI, general surgery, and then his iliac clinic this coming week. At this point, my plan would be to release him with Lasix. Return for any worsening in symptoms as needed. The plan has been discussed with patient and and they state understanding. Diagnosis Primary Impression: Leg edema Med/Other Pt SpecificInfo: Prescription(s) given Scripts Furosemide (Lasix) 20 Mg Tab 20 MG PO DAILY, #10 TAB 0 Refills Prov: Lonnie Antonio MD 07/31/17 Disposition: DISCHARGE HOME Condition: Stable Lonnie Antonio MD Jul 31, 2017 10:34
[2017-07-31 10:36] LABS: CALCIUM 8.3 MG/DL (8.5-10.1)
[2017-07-31 10:37] LABS: ALBUMIN 2.4 GM/DL (3.4-5.0); BICARBONATE 31.9 MEQ/L (21.0-32.0); BLOOD UREA NITROGEN 8 MG/DL (7-18); GLUCOSE,RANDOM 257 MG/DL (74-106)
[2017-07-31 10:38] LABS: PROTHROMBIN TIME - PATIENT 10.6 SEC (9.8-11.6)
[2017-07-31 10:40] LABS: ALT (GPT) 90 U/L (12-78); AST (GOT) 60 U/L (15-37); GLOMERULAR FILTRATION RATE 72 ML/MIN (>89)
[2017-07-31 10:41] LABS: TOTAL BILIRUBIN ADULT 1.3 MG/DL (0.2-1.0); TOTAL PROTEIN 6.9 GM/DL (6.4-8.2)
[2017-07-31 10:43] LABS: ALKALINE PHOSPHATASE 158 U/L (45-117)
[2017-07-31 10:45] LABS: TROPONIN I LESS THAN 0.02 NG/ML (0.02-0.05)
--- NOTE | 2017-07-31 10:51 | RADRPT ---
EXAM DATE/TIME: 07/31/2017 10:35 [facility] COMPARISON: CHEST SINGLE AP, July 27, 2017, 11:25. INDICATIONS : Short of breath MEDICAL HISTORY : Carcinoma, bladder. Diabetes mellitus type 2. Hypertension. SURGICAL HISTORY : Total knee replacement, right. Bilat hip replacements. Bladder surgery ENCOUNTER: [facility] ACUITY: 1 week PAIN SCORE: 0/10 LOCATION: Bilateral chest FINDINGS: A single portable frontal view the chest shows resolution of the right effusion and right basilar con solidation. No infiltrate or effusion on the current study. Heart normal in size. Bony structures are unremarkable. CONCLUSION: Clear lungs. No effusion. Jaylen Raphael Jr., MD on July 31, 2017 at 10:48 Board Certified Radiologist. This report was verified electronically.
[2017-07-31 11:28] VITALS: BP 167/68; PULSE 85; RESP 20; O2SAT 98
--- NOTE | 2017-07-31 12:07 | RADRPT ---
EXAM DATE/TIME: 07/31/2017 11:28 [facility] COMPARISON: No previous studies available for comparison. INDICATIONS : Bilateral leg swelling. Post cholecystectomy 07/24/17. MEDICAL HISTORY : Popliteal artery aneurysm. Hypertension. Diabetes mellitus type II. Carcinoma, bladder. SURGICAL HISTORY : Cholecystectomy. Total knee replacement, right. Bilat hip replacements. Bladder surgery. Popliteal a rtery bypass. ENCOUNTER: Initial ACUITY: 1 week PAIN SCORE: 0/10 LOCATION: Bilateral leg. TECHNIQUE: Venous ultrasound of the left and right leg was performed from the inguinal ligament to the proximal calf. Real-time, color Doppler and spectral tracing, compression and augmentation techniques were us ed. FINDINGS: RIGHT LEG: There is normal compressibility of the deep venous system from the inguinal region to the proximal ca lf. No echogenic clot is seen in the lumen of the common femoral, femoral, popliteal, and posterior tibial veins. There is a normal response of the venous system to proximal and distal augmentation an d respiration. LEFT LEG: There is normal compressibility of the deep venous system from the inguinal region to the proximal ca lf. No echogenic clot is seen in the lumen of the common femoral, femoral, popliteal, and posterior tibial veins. There is a normal response of the venous system to proximal and distal augmentation an d respiration. In the popliteal fossa there is a dilated hypoechoic structure measuring 4.1 x 2.3 cm . The popliteal artery appears to connect with this structure. CONCLUSION: 1. No DVT is identified within either lower extremity. 2. There is a popliteal artery aneurysm measuring approximately 2.3 cm in diameter and 4.1 cm in diaz th. William Rivera MD on July 31, 2017 at 12:03 Board Certified Radiologist. This report was verified electronically.
[2017-07-31] MEDS ORDERED: FUROSEMIDE 20 MG/2 ML VIAL IV PUSH ONE (12:15)
[2017-07-31] MEDS ORDERED: FURO1TAB62 PO (12:20)
[2017-07-31 12:40] VITALS: BP 157/78
== END 2017-07-31 13:12 | disposition home or self-care (01) ==
LOC: PHED 09:26
DX: R60.0 Localized edema (principal); R06.02 Shortness of breath; R05 Cough; I25.10 Atherosclerotic heart disease of native coronary artery without angina pectoris; I10 Essential (primary) hypertension; E11.9 Type 2 diabetes mellitus without complications; E78.00 Pure hypercholesterolemia, unspecified; Z98.890 Other specified postprocedural states; Z79.4 Long term (current) use of insulin; Z85.51 Personal history of malignant neoplasm of bladder; Z86.718 Personal history of other venous thrombosis and embolism; Z87.39 Personal history of other diseases of the musculoskeletal system and connective tissue
CPT/HCPCS: 71045; 80053; 83880; 84484; 85025; 85610; 85730; 93970; 96374; 99285; J1940